=== PATIENT | female | born 1955 | race Caucasian/White ===

== ENCOUNTER 2017-10-22 01:37 | Inpatient (IN) | payer OTHER ==
--- NOTE | 2017-10-18 16:21 | Cons- Neurosurgical ---
General Information and HPI Consulting Request Date of Consult: 10/18/17 Requested By: Arturo RUIAS,Alfa Gaviria Reason for Consult: Neck and arm pain Source of Information: patient Exam Limitations: no limitations History of Present Illness: 63-year-old right-handed lady who was injured at work on 03/27/2015 and she tripped and fell over 1 Registered to another heart. She'll fractured clavicle without being treated she's continued to have neck and arm pain. The pain radiates from the neck and the fingers of her right hand that have been associated with a recent onset weakness she has been in physical therapy with no long-standing relief she has had epidural injections and facet injections with minimal relief Allergies/Medications Allergies: Coded Allergies: No Known Allergies (10/15/17) Home Med List: Aspirin (Children's Aspirin) 81 MG TAB.CHEW 1 TAB PO DAILY HEART HEALTH ( Reported) Atorvastatin Calcium (Lipitor) 10 MG TABLET 1 TAB PO DAILY CHOLESTEROL ( Reported) Carvedilol 6.25 MG TABLET 1 TAB PO BID HEART (Reported) Duloxetine HCl (Cymbalta) 60 MG CAPSULE.DR 1 CAP PO DAILY DEPRESSION ( Reported) Famotidine 20 MG TABLET 1 TAB PO BID AVOID STOMACH IRRITATION (Reported) Gabapentin 600 MG TABLET 1 TAB PO QHS PAIN (Reported) Gabapentin (Neurontin) 300 MG CAPSULE 1 CAP PO QHS PAIN (Reported) Ibuprofen (Motrin) 800 MG TAB 1 TAB PO Q8H PRN PAIN OXYCODONE HCL/ACETAMINOPHEN (Percocet 5-325 MG Tablet) 325 MG/5 MG TAB 1 TAB PO Q4-6 PRN PRN PAIN Ranitidine (Ranitidine HCl) 150 MG TABLET 1 TAB PO BID REFLUX (Reported) Tramadol HCl (Tramadol HCl ER) 100 MG TAB.ER.24H 1 TAB PO 12 N00N PAIN ( Reported) Current Medications: Cymbalta tramadol methotrexate Celebrex ibuprofen famotidine and ranitidine Past History Medical History Blood Transfusion Hx: No Neurological: NONE EENT: NONE Cardiovascular: hypertension Respiratory: NONE Gastrointestinal: NONE Renal: NONE Musculoskeletal: PLANTAR FASCITIS pelvic fracture Psychiatric: NONE Endocrine: NONE Blood Disorders: NONE Cancer(s): NONE 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 Home Who Do You Live With? spouse Services at Home: None Primary Language: Georgian Smoking Status: Former Smoker ETOH Use: denies use Illicit Drug Use: denies illicit drug use Living Will? unknown Power of Dialer/HCP? unknown Name of POA/HCP: Other Social History: None Functional Ability ADLs Independent: dressing. Ambulation: independent IADLs Independent: shopping. 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 no Review of Systems Review of Systems: Symptoms are worse with activities and using bending sitting standing and walking are improved with rest and medication. She has posterior cortex. She has no bowel or bladder dysfunction. Review of Systems Constitutional: Denies: no symptoms. EENTM: Reports: see HPI. Cardiovascular: Denies: no symptoms. Respiratory: Reports: see HPI. GI: Denies: no symptoms. Genitourinary: Denies: no symptoms. Musculoskeletal: Reports: see HPI. Skin: Denies: no symptoms. Neurological/Psychological: Denies: no symptoms. Hematologic/Endocrine: Denies: no symptoms. Immunologic/Allergic: Denies: no symptoms. All Other Systems: Reviewed and Negative Exam & Diagnostic Data Vital Signs and I&O see primary care note Physical Exam: She states that 3. She was torn and 30 pounds. Her cranial nerves are intact. She has marked limitation of range of motion of her neck and has bothered bilateral positive Spurling signs. She has an axial loading sign to the right. She is areflexic and biceps brachioradialis and triceps on the right. She has no increased finger flexors. She has decreased sensation in C6 and C7 distribution as well on the right. Left thumb appears to be within normal limits was 1-2+ reflexes. She is slightly hyperreflexic at knees being 3+ to 4+ Earl's Physical Exam General Appearance: well developed/nourished Head: atraumatic Eyes: Bilateral: normal appearance. Ears, Nose, Throat: normal ENT inspection Neck: limited range of motion Respiratory: normal breath sounds Cardiovascular: regular rate/rhythm Breasts deferred Peripheral Pulses: 1+ radial (R), 1+ radial (L) Gastrointestinal: soft Rectal: deferred Back: normal inspection Extremities: normal inspection Neurologic/Psych: normal gait, normal mood/affect Cranial Nerves: normal hearing Skin: intact Lymphatic: no anterior cervical kimmy Reproductive: deferred Pelvic: deferred Other Physical Findings: No other physical findings Last 24 Hours of Labs: Pending Imaging Results: CAT scan shows an anterior subluxation of C3 over C4 and C4 C6 7 disc space narrowing significant reversal of lordosis. C3 4 there is a significant right foraminal encroachment of the facet arthropathy at C4 5 there is a disc osteophyte complex with facet hypertrophy and facet encroachment bilaterally. There is some flattening of the cortical osteophyte complex at C5 6 and worsening right-sided narrowing at the level CV 6 and C6 Her MRI demonstrates central disease at C3 4 and as such severe right-sided foraminal stenosis at C3 4, joint hypertrophy bilaterally at C4 5 with severe right foraminal stenosis. C5 6 demonstrates more central canal compromise and C6 7 shows no stenosis foraminal entrapment Other Results: No EMG Assessment/Plan Assessment/Plan Patient was sent to inserting the most dangerous situation for her was a simple lateral listhesis at C3 4 and a compromise at C4 5. She was indicated for surgery at least 2 levels. She manifested consider doing further surgery either posteriorly or anteriorly. Other Findings/Comments: None Copies To: Alfred Reyes DO, MD,[facility]. Consult Acknowledgment - Thank you for your consult request.
[~2017-10-22] VITALS: Ht 167.6 cm; Wt 103.9 kg
[~2017-10-22 01:37] MED LIST: CARVEDILOL6.25 M1 PO; CHILDREN'S ASPI81 M1 PO; CYMBALTA60 M1 PO; FAMOTIDINE20 M1 PO; GABAPENTIN600 M1 PO; LIPITOR10 M1 PO; MOTRIN800 MG PO; NEURONTIN300 M1 PO; PERCOCET 325 MG1 TA2 PO; RANITIDINE HCL150 MG PO; TRAMADOL HCL E100 MG PO
--- NOTE | 2017-10-22 12:34 | Operative Report ---
Operative/Inv Procedure Report Surgery Date: 10/22/17 Name of Procedure: #1 anterior cervical microscopic discectomy C3-4 C4-5 #2 preparation of space for fusion C3-4 C4-5 #3 repair of dural tear Pre-Operative Diagnosis: #1 spondylolisthesis C3-4 #2 spinal stenosis C4-5 Post-Operative Diagnosis: Same Estimated Blood Loss: scant Surgeon/Heating Technician: Arturo URIAS,Alfa Gaviria(cosurgeon) Mac Edwards MD Anesthesia: general endotracheal tube Monitors: Neurophysiology IV Fluids: D5NS Implants: Medtronic plate and cages Urine Output: Overall 100 mL Drains: None Specimens: None Microbiology: None Tourniquet: None Complications: C4-5 dural tear in the foramen on the left side Condition: Stable Operative Indication: 62-year-old right-handed lady who was injured at work falling the course of her employment at [employer] and has had neck and right arm pain since. Extensive physical therapy and multiple injections failed to resolve her problem. She was identified as having spondylolisthesis at C3 4 and spinal stenosis at C4 5 in addition to other spondylotic changes at the 2 levels beneath. Indication for surgery alternative risks and possible convocation were discussed at length patient elected to have surgery performed O guarantees given all questions answered Operative/Procedure Note Note: The patient was intubated supine received 2 g of intravenous antibiotics was then kept supine with her neck hyperextended on a shoulder roll in a halter traction device and 15 pounds of weight placed on her neck Her head was elevated to about 50 and prepped and draped usual sterile manner and incision was created in the skin folds after being infiltrated with Xylocaine and epinephrine Sharp dissection was carried down to the platysma which was then dissected in the direction of its fibers Sharp dissection was brought down to the anterior cervical fascia which was stripped superiorly and inferiorly to Harper were placed and an x-ray of with C-arm confirmed that we were at C3 4 C4 5 and this was confirmed by the radiologist coming into the room indeed Starting at C3 4 on the anterior osteophyte was removed the space entered with 11 blade knife under the magnification and illumination provided for by the Leica microscope using a 3 mm Kerrison the anterior osteophyte was removed disc material was removed with straight and up-biting pituitaries and micro-graspers a long vertebral growth media mixer mushroom was placed in the interbody space and we are able to focus on the posterior longitudinal ligament which was then opened with a nerve hook and widened with 2 mm Kerrisons and 1 mm Kerrisons This was carried out widely until both foramina were free The same procedure was started at C4 5 likewise removing the anterior osteophytes at removing disc material and and proceeding to open the posterior longitudinal ligament. Once this was opened and no disc fragments were verified attention was therefore was attempted to verify the foramen a bilaterally this was cleared easily on the patient's right hand side on a patient's left-hand side a dural tear was noted This required treatment by ultimately placing Tisseel right over the defects followed by a layer of Gelfoam followed by a second layer of Tisseel followed by placement of an extra piece of Gelfoam which she then was removed upon fusion The space was prepared for fusion with drill and rasps and curettes and once ready was turned over to the orthopedic service for fusion and this will be dictated separately Sponges and count correct Findings: Patient spondylolisthesis resolved upon extension Discharge Disposition: PACU Additional Comments: Patient may require an extra day of hospitalization to verify on dryness of CSF repair CC: Sade Reyes DO; Arturo URIAS,Alfa Gaviria
--- NOTE | 2017-10-22 13:29 | Admission Core Measures ---
Acute Coronary Syndrome (CM) ACS Core Measures Acute Coronary Syndrome Diagnosis No Congestive Heart Failure (NEW) CHF Core Measures Congestive Heart Failure Diagnosis No Cerebrovascular Accident (NEW) CVA Core Measures CVA/TIA Diagnosis No Venous Thromboembolism VTE Core Geoff (View Protocol) VTE Risk Factors Surgery No Mechanical VTE Prophylaxis d/t N/A MechProphylax Ordered No VTE Pharm Prophylaxis d/t Surgical Contraindication Problem List As ranked by this Provider includes Assessment & Plan 1. Spondylolisthesis of cervical region HOME MEDS Home Med List Aspirin (Children's Aspirin) 81 MG TAB.CHEW 1 TAB PO DAILY HEART HEALTH ( Reported) Atorvastatin Calcium (Lipitor) 10 MG TABLET 1 TAB PO DAILY CHOLESTEROL ( Reported) Carvedilol 6.25 MG TABLET 1 TAB PO BID HEART (Reported) Duloxetine HCl (Cymbalta) 60 MG CAPSULE.DR 1 CAP PO DAILY DEPRESSION ( Reported) Famotidine 20 MG TABLET 1 TAB PO BID AVOID STOMACH IRRITATION (Reported) Gabapentin 600 MG TABLET 1 TAB PO QHS PAIN (Reported) Gabapentin (Neurontin) 300 MG CAPSULE 1 CAP PO QHS PAIN (Reported) Ranitidine (Ranitidine HCl) 150 MG TABLET 1 TAB PO BID REFLUX (Reported) Tramadol HCl (Tramadol HCl ER) 100 MG TAB.ER.24H 1 TAB PO 12 N00N PAIN ( Reported)
[2017-10-22 16:10] VITALS: BP 170/98
[2017-10-22 16:15] VITALS: BP 170/98
--- NOTE | 2017-10-22 16:47 | RADIOLOGY REPORT ---
EXAMINATION: CR CERVICAL SPINE/INTRAOPERATIVE FLUOROSCOPY CLINICAL INDICATION: Laminectomy/fusion C3-C5 in OR. COMPARISON: CT scan of the cervical spine dated 12/19/2016 TECHNIQUE/FINDINGS: Fluoroscopic equipment was dedicated to the operating room for the performance of an intraoperative procedure. Several (4) spot films were acquired and are archived in PACS. The images were windowed and leveled several different ways and sent again. Image detail is extremely limited. When viewed intraoperatively, 2 markers were thought to be present at the C3-C4 and C4-C5 disc space. Please refer to operative notes for procedural detail. FLUOROSCOPY TIME: 0.38 seconds. IMPRESSION: Administrative dictation for intraoperative fluoroscopy and image archiving in PACS. Please refer to operative notes for details.
--- NOTE | 2017-10-22 18:09 | PN- Orthopedic ---
Subjective Subjective: No acute post operative events noted. Pt is resting comfortably. Denies chest pain, shortness of breath and difficulty breathing. Denies nausea and vomitting. Has been oob to void, did have some dizziness. No numbness or tingling to bilateral upper extremities. No difficulty speaking or swallowing. Using dpca with good effect. Objective Vital Signs and I&Os See emr Physical Exam: General: Alert and oriented x3, no acute distress CN in tact Cardiac: RRR, s1s2 Pulm: C T A bilaterally Abd: Soft, non-tender, non-distended Extremities: Moves all extremities, distal sensation grossly intact. Motor 5/5 in bilateral hand computer aide. Skin warm and well perfused. Bialteral calves soft and non-tender. Surgical site: Neck. Dressing dry and intact. Collar in place. Padding over ears. Assessment/Plan Assessment/Plan This is a 62 year old female, POD 0, s/p ACDF C3-5 for spondylolisthesis Continue home meds Keep HOB greater than 30 degrees Soft mechanical diet Ancef for abx ppx x 2 additional doses ALPS for dvt ppx, surgical contraindication at present time for anticoagulant per Dr. Morris DPCA for pain Can get oob Will discuss poc with Dr. Morirs Core Measures Venous Thromboembolism VTE Risk Factors Surgery No Mechanical VTE Prophylaxis d/t N/A MechProphylax Ordered No VTE Pharm Prophylaxis d/t Surgical Contraindication
[2017-10-22 18:15] VITALS: BP 150/80
[2017-10-22 20:15] VITALS: BP 158/90; BP 158/96
[2017-10-22 22:33] VITALS: BP 150/90
[2017-10-23] VITALS (13 sets, daily range): BP systolic 130–150; BP diastolic 74–92
--- NOTE | 2017-10-23 08:24 | PN- Orthopedic ---
Subjective Subjective: No acute overnight events reported. Pateint seen by Dr. Morris this am. 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 Complaining now of headache, no photophobia. Reports improved strength in bilateral upper extremities. Denies chest pain, shortness of breath and difficulty breathing. Denies nasuea and vomitting. Has been oob to chair. Anticiaptes discharge to home today if headache resolves Objective Vital Signs and I&Os Vital Signs Date Time Temp Pulse Resp B/P B/P Pulse O2 O2 Flow FiO2 Mean Ox Delivery Rate 10/23 0615 98.0 78 20 150/92 98 Nasal 3.0L Cannula 10/23 0600 98.0 78 20 150/92 / 0415 97.2 80 20 140/90 98 Nasal 3.0L Cannula 10/23 0400 97.2 80 20 140/90 / 0215 98.0 77 20 140/90 97 Nasal 3.0L Cannula 10/23 0200 20.0 77 98 140/90 / 0015 97.8 82 20 130/74 96 Nasal 3.0L Cannula 10/23 0000 97.8 82 20 130/74 03/ 0000 96 Nasal 3.0L Cannula 10/22 2233 97.9 100 18 150/90 98 Nasal 3.0L Cannula 10/22 2121 105 158/90 10/22 2014 97.7 105 18 158/96 10/22 2014 97.7 105 18 158/90 98 Nasal 3.0L Cannula 10/22 181 97.6 95 18 150/80 / 1815 97.6 95 18 150/80 95 Nasal 3.0L Cannula 10/22 1615 98.3 101 18 170/98 10/22 1615 98.3 101 18 170/98 96 Nasal 3.0L Cannula 10/22 1610 Nasal 3.0L Cannula 10/22 1610 98.3 101 18 170/98 96 Nasal 3.0L Cannula Intake & Output 10/23 1600 / 0800 / 0000 / 1600 / 0800 / 0000 Intake Total 945 300 Output Total 700 650 Balance 245 -350 Intake, IV 825 Intake, Oral 120 300 Number 0 Bowel Movements Output, Urine 700 650 Patient 229 lb Weight Physical Exam: General: Alert and oriented x3, no acute distress Cards: RRR, s1s2 Pulm: CTA bilaterally HEENT: Voice strong, swallow intact, tolerating mechanical soft diet ABD: non-tender, non-distended Extremities: Moves all extremities, distal sensation grossly intact. Bilateral upper extremity strength 5/5 in hand film historian and bicep curls. Skin warm and well perfused. Distal pulses intact. Bilateral calves soft and nontender. Surgical site: Neck, collar in place, dressing dry and intact. Assessment/Plan Assessment/Plan This is a 62 year old female, POD 1 s/p acdf c3-5 with dural repair. PMH signficant for anx/dep, htn, hld, neuropathy -Continue home meds -DC d hydro excavation operator -Add po percocet -Continue HOB greater than 30 -Monitor headache. Pt requesting to go home today. Will monitor headache, will keep in hospital if headache persists. Discussed with Dr. Morris Core Measures Venous Thromboembolism VTE Risk Factors Surgery No Mechanical VTE Prophylaxis d/t N/A MechProphylax Ordered No VTE Pharm Prophylaxis d/t Surgical Contraindication
--- NOTE | 2017-10-23 08:51 | PN- Neurosurgical ---
Surgical Brief Attending Note Brief Attending Note: Postoperative day #1 AVSS No difficulty swallowing no hoarseness. Complete resolution of preoperative complaints. She feels her hands are stronger. Incision is clean flat no collection noted under it. No headaches no nausea no vomiting Patient doing quite well and no objections to her being discharged and will see in the office. She might need to go to [facility] Charge is sore and another ortho supply outfitted for a better sized collar. We will see in the office
[2017-10-23] MEDS ORDERED: PERCOCET 5-3251 EACH PO (20:37)
--- NOTE | 2017-10-23 20:42 | Patient Discharge Instructions ---
Discharge Instructions General Discharge Information You were seen/treated for: Anterior cervical discectomy and fusion C3 to C5 You had these procedures: See above Watch for these problems: Redness from the wound, drainage from the wound, headaches, nausea, vomiting, sensitivity to light, fever or flulike illness, difficulty swallowing Call Surgeon to remove: Stitches (10 days) Do not soak the wound: Yes Daily wet to dry dressings: No No bath, but you may shower: Yes Other wound care: Keep the dressing covered, clean and dry Special Instructions: Continue cervical collar Head of bed elevated greater than 30 at all times, do not lay flat Diet Continue normal diet: Yes Activity Full Activity/No Limits: No Activity Self Limited: Yes Pounds, do NOT lift more than: 10 Additional ACTIVITY Info: Usual activities of daily living are permitted, no excessive physical activity Acute Coronary Syndrome Inclusion Criteria At DC or during hospital stay patient has or had the following: ACS DIAGNOSIS No Discharge Core Measures Meds if any: Prescribed or Continued at Discharge Meds if any: NOT Prescribed or Continued at Discharge Congestive Heart Failure Inclusion Criteria At DC or during hospital stay patient has or had the following: CHF DIAGNOSIS No Discharge Core Measures Meds if any: Prescribed or Continued at Discharge Meds if any: NOT Prescribed or Continued at Discharge Cerebrovascular accident Inclusion Criteria At DC or during hospital stay patient has or had the following: CVA/TIA Diagnosis No Discharge Core Measures Meds if any: Prescribed or Continued at Discharge Meds if any: NOT Prescribed or Continued at Discharge Venous thromboembolism Inclusion Criteria VTE Diagnosis No VTE Type NONE VTE Confirmed by (Test) NONE Discharge Core Measures - Per Current guidelines, there needs to be overlap - treatment for the first 5 days of Warfarin therapy. - If discharged on Warfarin prior to 5 days of - overlap therapy, the patient will need to be - assessed for post discharge needs including - *Post discharge parental anticoagulation - *Warfarin and/or parental anticoagulation education - *Follow up date to check INR post discharge At least 5 days overlap therapy as Inpatient No Meds if any: Prescribed or Continued at Discharge Note: Overlap Therapy is Warfarin and Anticoagulant Meds if any: NOT Prescribed or Continued at Discharge
--- NOTE | 2017-10-23 20:45 | Surg Short-stay <48hrs Dis Sum ---
Visit Information Visit Dates Admission Date: 10/22/17 Discharge Date: 10/23/17 Surgical Short Stay DC Summary Admission Diagnosis: s/p acdf c3-5 with dural repair. Final Diagnosis: same Procedure(s): see above Summary/Significant Findings: Patient underwent the above mentioned procedure, was evidently she did well, she had her head of bed elevated about 30 she had a headache postoperatively. She felt comfortable being discharged home on postop day #1. Pain was controlled, no fever, no complications. No neurologic weakness or deficits. She'll follow up with orthopedist as outpatient Condition at Discharge: Good Discharge Disposition: home or self care Discharge instructions provided to patient/family: Yes Post discharge follow-up plan: Follow-up with Alfa Morris MD in 10 days in the office Continue cervical brace, head of bed elevation over 30, pain medication as needed
--- NOTE | 2017-10-23 21:45 | Operative Report ---
See Addendum Operative/Inv Procedure Report Surgery Date: 10/22/17 Name of Procedure: 1) C2-C3 Exploration Of Segmental Autofusion (Arturo/Grace) 2) C3-C4 Combination Closed And Open Treatment Of Dynamically Hypermobile And Unstable Cervical Spondylolisthesis Associated With Neural Element Deviation , Compression And Risk Of Compromise Requiring Reduction Using Intraoperative Traction And Direct Internal Manipulation Prior To Instrumented Stabilization Followed By Postoperative Rigid Cervical Orthosis Bracing (Arturo/Grace) 3) C3-C4 Anterior Cervical Discectomy And Instrumented Fusion (Arturo- Grace Co-Surgeons) 4) C4-C5 Anterior Cervical Discectomy And Instrumented Fusion (Arturo- Grace Co-Surgeons) 5) C3-C4 Anterior Cervical Interbody PEEK Implant Instrumentation (Arturo/ Grace) 6) C4-C5 Anterior Cervical Interbody PEEK Implant Instrumentation (Arturo/ Grace) 7) C3-C5 Anterior Cervical Transvertebral Plate-Screw Implant Construct Instrumentation (Arturo/Grace) 8) C3-C5 Correction Of Kyphotic Deformity (Arturo/Grace) 9) C3-C5 Anterior Cervical Interbody Moselized Local Autograft [place], Preparation And Implantation (Arturo) 10) C3-C5 Use Of Operating Microscope (Grace) Pre-Operative Diagnosis: Primary Surgically Treated Diagnoses: 1) C3-C4 And C4-C5 Upper And Mid-Cervical Grade II Degenerative Partially Dynamic Foraminal Neurocompressive Cervical Spondylolisthesis 2) C3-C4 And C4-C5 Upper And Mid-Cervical Spinal Segmental Instability 3) C3-C5 Upper And Mid-Cervical Spinal Moderate To Severe Partially Flexible Short-Segment Kyphotic Deformity 4) C3-C4 And C4-C5 Upper And Mid-Cervical Spondylosis With Concurrent Bilateral Upper Shoulder And Distal Upper Extremity Radiculopathy* 5) C3-C4 Degeneration Of Upper Cervical Intervertebral Disc 6) C4-C5 Degeneration Of Mid-Cervical Intervertebral Disc 7) C3-C4 Upper Cervical Intervertebral Disc Disorder With Associated Bilateral Upper Shoulder And Concurrent Distal Upper Extremity Radiculopathy* 8) C4-C5 Mid-Cervical Intervertebral Disc Disorder With Associated Bilateral Upper Shoulder And Concurrent Distal Upper Extremity Radiculopathy* 9) Severe, Activity And Functionally Limiting, Intermittently Incapacitating Neck (Cervical Spine) Pain (Cervicalgia) 10) C3-C4 And C4-C5 Upper And Mid-Cervical Bilateral Osseous Foraminal Cervical Spinal Stenosis 11) Upper Cervical Bilateral Radiculopathy Of Undefined Relationship To And Likely Partially Independent Of Operative Level Intervertebral Disk Disorder Or Spondylosis Manifest As Proximal Upper Extremity (Upper Shoulder) Radiating Pain And Separate Lower Cervical Distribution Radiculopathy Manifest As Bilateral Hand Weakness, Numbness And Discoordination Which Is Likely Completely Independent Of Operative Level Pathology (* = Refer Here And Elsewhere In This Diagnosis List Or Document For Detailed Radiculopathy Symptom And Finding Description) Primary Surgically Evaluated Diagnoses: 12) C2-C3 Upper Cervical Motion Segment Auto-Arthrodesis Secondary Surgically Treated Diagnoses: 13) C3-C4 And C4-C5 Bilateral Upper Cervical Disk Space Intermediate-Sized Anterior And Posterior Broad-Based (Central And Bilateral Paracentral) Endplate And Bilateral Uncovertebral Intraforaminal Compressive Osteophytic Spondylosis 14) C3-C4 And C4-C5 Bilateral Upper And Mid-Cervical Level Mild To Severe Degenerative Osteoarthritic Facet Arthropathy 15) C3-C4 And C4-C5 Bilateral Upper And Mid-Cervical Level Mild To Severe Hypertrophic Facet Arthropathy Secondary Potentially Surgically Treated Diagnoses: 16) Bilateral Upper Extremity Distal (Anglesmith And Finger Abduction) Motor Neurological Deficit With Reported Episodes Of Giving Way And Dropping Of Even Light Objects Due To Weakness 17) Bilateral Upper Extremity Moderate Distal Coordination Neurological Deficit With Reported Episodes Of Deterioration In Manipulation Of Small Objects 18) Bilateral Distal Upper Extremity Hypoesthetic Disturbance Of Skin Sensation Secondary Surgically Relevant Diagnoses: 19) C2-C7 Severe, Diffuse And Extensive Cervical And Cervicothoracic Regional Spinal Degenerative Arthritis (Spondyloarthropathy) Perioperatively Clinically Relevant Diagnoses: 20+) Numerous Additional Diagnoses Related To The Degenerative And Spondylotic Disease At C5-C6 And C6-C7 Post-Operative Diagnosis: Same as preoperative diagnosis list with the addition of: Intraoperative Surgically Treated Diagnoses: 1) C3-C4 And C4-C5 Expected Upper And Mid-Cervical Spinal Segmental Intraoperative (Post-Discectomy, Pre-Instrumentation) And Potential Postoperative Instability Requiring Operative Instrumented Stabilization 2) C3-C4 And C4-C5 Expected Potential Early Postoperative (Post-Discectomy, Post-Instrumentation And Pre-Arthrodesis) Microinstability Requiring Acute Postoperative Activity Limitation And Rigid Cervical Orthosis Use 3) C3-C4 Level Left Ventral Nerve Root Sleeve Incidental Durotomy Requiring Sealant Repair With No Persistent Spinal Fluid Leak Identified After Successful Repair. Patient May Will Require Specialized Postoperative Positioning ( Elevated Head Position) And Close Inpatient Nursing Observation During The Acute Postoperative Period Which May Need To Extend Beyond The First Postoperative Day Depending On Serial Inpatient Postoperative Assessments Intraoperative And Postoperative Diagnoses Relevant To Postoperative Care: 1) Anticipated Acute Postoperative Neck And Bilateral Upper Shoulder Region Pain Requiring Potentially Sedating Postoperative Narcotic Analgesic Pain Medication And Inpatient Nursing Observation And Supervised Mobilization Following Complex And Extensive But Uncomplicated Multilevel Anterior Cervical Discectomy And Instrumented Fusion With Correction Of Deformity 2) Anticipated Acute Postoperative Cervical Spine And Upper Shoulder Region Muscular Spasm Requiring Potentially Sedating Postoperative Muscle Relaxant Medication Following Procedure Described Above 3) C3-C4 And C4-C5 Early Acute Anterior Cervical Spinal Discectomy And Decompression Postprocedural Status 4) C3-C4 And C4-C5 Early Acute Anterior Cervical Spinal Arthrodesis Postprocedural Status 5) C3-C4 And C4-C5 Presence of Anterior Cervical Spinal Interbody PEEK Cage And Anterior C3-C5 Transvertebral Plate-Screw Osseous Stabilization Instrumentation Construct Implants 6) Potential For Acceleration Of Bone Healing Relative To The Standard Healing Likelihood And Timecourse For The Extent (Number Of Motion Segments) Of the Multicolumn, Multilevel Arthrodesis Being Performed, The Complexity ( Baseline Spondylolisthesis And Instability) Of The Underlying Condition Being Treated And The Multilevel Use Of Non-Osseous Implants In This Patient Whose Stated Goal And Reasonable Postoperative Potential Is To Return As Close As Possible To Her Pre-Injury Level Of Function As Early As Possible Following This Procedure All Of Which Are Indications For The Use Of An External Pulsed Electromagnetic Field Stimulation Device To Potentially Optimize And Accelerate Osseous Fusion Formation Estimated Blood Loss: less than 50ml Surgeon/Riveter: FRANKLIN PATEL MD - Primary Admitting Orthopaedic Spine Co-Surgeon MAC EDWARDS MD - Primary Consulting Neurological Spine Co-Surgeon Surgical Providers: Regarding Orthopaedic Spine Portion Of Procedure Dictated Here: Franklin Patel M.D. - Orthopaedic Spine Surgeon (Co-Surgeon/Primary Admitting Surgeon) Mac Edwards M.D. - Neurosurgeon (Co-Surgeon/Riveter Surgeon) See Neurosurgical Operative Report Regarding Surgical Provider Designation For Neurosurgical Spine Portion Of Procedure Anesthesia: general endotracheal tube Monitors: Standard general anesthesia and other perioperative monitoring was performed per anesthesia protocols. Standard Intraoperative EMG, SSEPand recurrent laryngeal nerve electrophysiological monitoring (NeuroAlert) MEP monitoring was not performed in this case as a precautionary measure because of the patient's history (albeit remote and nonspecific) of possible seizures. Refer to anesthesia and intraoperative electrophysiological monitoring records for details. IV Fluids: Standard anesthesia fluid management was performed without requirement for additional or emergent fluid resuscitation. Refer to anesthesia records for details. Implants: Implants: Implants Placed: Anterior Interbody Implants: Medtronic Cornerstone Anatomic PEEK PTC Interbody Cage Implants: 1 x 8 mm Height x 11 mm Depth x 14 mm Width At C3-C4 Anterior Transvertebral Cervical Implants: Medtronic Anterior Cervical [place] Vision Elite (AVE) Plate- Screw Construct: 1 x 37 mm 3-Tzquczciwtxaay-Fsnhxs-Level (3 Vertebral Level), 6-Hole AVE Plate Implanted From C3 To C5 (With Fixation At C3, C4 And C5 ) 3 x 13 mm Length x 4.0 mm Diameter Fixed Angle Self- Tapping (FAST) AVE Screws Implanted Bilaterally AT C5 And On The Right At C4 3 x 13 mm Length x 4.0 mm Diameter Variable Angle Self- Tapping (VAST) AVE Screws Implanted On The Left At C4 And Bilaterally AT C3 Graft: Graft Placed: Morselized Locally Harvested Autograft: Harvested From C3-C4 And C4-C5: Resected Anterior And Uncovertebral Osteophytes Decorticated And Drill Contoured Osseous Endplates Densely Packed In The Central Chamber Of The Interbody Cages: C3-C4 C4-C5 Urine Output: Refer to anesthesia records for details. Drains: None Specimens: Removed cervical disk fragments sent to pathology for analysis per hospital protocol Complications: None Operative/Procedure Note Note: Preoperative Holding Area Assessment/Preparation: The patient was evaluated in the preoperative holding area prior to surgery and no clinical changes or contraindications to surgical intervention were documented compared to the preoperative office and clearance evaluations. Her mild but reproducible bilateral hand motor, sensory and coordination deficits are unchanged from clearance examinations although the patient reports that they are slowly but steadily subjectively worsening. As in the office, the patient was otherwise grossly neurovascularly intact in both upper extremities to standard testing. Active, patient controlled Lhermitte's and Spurling's maneuvers were negative and there were no abnormal or hyperactive reflexes to suggest acute, resting or positional neural element compression that might be associated with increased neurological intraoperative risk based on preoperative assessment. She did however have moderately increased axial and proximal radiating upper shoulder pain at the extremes of flexion and extension. These exacerbated symptoms were only at maximal excursion well outside of the standard neutral range for intraoperative positioning. With the patient's head and neck in the neutral position intended for intraoperative positioning, all exacerbated symptoms resolved. In this neutral cervical alignment, gentle traction was applied and the patient reported increased comfort without any exacerbation related to traction. Therefore, standard ACDF positioning and traction were felt to be safe and optimal for the procedure. The surgical plan and site were confirmed with the patient and preoperative paperwork was finalized. In the preoperative evaluation area, she confirmed her oral intake status as NPO since midnight prior to surgery. The region of the intended surgical site was cleansed, prepped and marked per protocol. The surgeons, anesthesia care team members, and operating room staff confirmed the patient identity, surgical procedure, and operative site as well as other clinical details with the patient in an initial documented preoperative confirmation (awake time out) prior to the administration of significant sedation or anesthesia. Surgical Procedure: Dr. Patel and Dr. Edwards were both present for and participated equally as co-surgeons in all clinically significant phases of the surgical procedure documented below as well as for all critical intraoperative and perioperative decisions and interventions. The set-up, positioning, exploration of autofused level, arthrodesis, instrumentation and closure portions of the procedure are described in greatest detail in this operative report. Refer to Dr. Mora Neurosurgical operative report for additional details particularly regarding the electrophysiological monitoring, application of cervical traction, exposure, discectomies, osteophytectomies, neural element decompression, sealant closure of durotomy and microsurgical (use of the operating microscope) portions of the procedure. The patient's body habitus (BMI = 30) with short, deep and muscular neck increased the difficulty and risk of the procedure but did not specifically require additional procedural services in this case. Set-Up/Positioning/Exposure - The patient was brought to the operating room in stable condition and underwent uncomplicated induction of general anesthesia, intubation, and placement of all appropriate monitors, lines and catheters without difficulty. Administration of 2 grams of IV Ancef based on patient body mass was given for surgical prophylaxis and was completed at least 30 and less than 60 minutes prior to making an incision. Corticosteroid (Decadron 4 mg IV) was requested by anesthesia for nausea prophylaxis, approved by the surgeon (particularly considering its theoretical neuroprotective effect in this patient with bilateral, multi-root distribution radiculopathy), and administered shortly after intubation. The patient was positioned supine on the operating table in standard fashion for an anterior cervical discectomy and instrumented fusion taking care to protect and stabilize the spine during transfer, avoid positions of nerve stretch, pad all pressure points, and support the head and neck in a slightly extended position using a rolled sheet under the scapulae and a gel donut head rest under the occiput. Care was taken to insure that the intraoperative position was maintained throughout the procedure within the range which the patient had confirmed as being comfortable and without exacerbated symptoms preoperatively. Harness cervical traction apparatus was placed in standard fashion with 15 pounds of stabilizing weight applied (even for this upper cervical procedure given the patient's short, muscular neck) taking care to avoid any force transmission to the endotracheal tube. The operating table was gently flexed upward at the hips and downward at the knees in a partial "beachchair" position to optimize stability of the patient on the table as well as the angle of access to the cervical disk spaces particularly under microscope visualization. Electrophysiological monitoring electrodes were placed per standard monitoring protocol. Wrist cuffs were placed with sufficient circumferential approximation so that bilateral upper extremity traction could be applied during the case if necessary for radiologic visualization, but loose enough that there was no pressure to the wrists when traction was not being applied. Care was taken to insure that all IV sites and monitoring leads were protected in the unlikely event that wrist traction was required during the procedure. The arms were well padded and tucked at the patient's sides, again taking care to protect all IV sites and monitoring leads. Baseline preoperative electrophysiological monitoring readings were obtained and no gross abnormalities were noted. The surgeons, anesthesia care team, and operating room staff again documented the patient identity, surgical procedure, and operative site as well as other clinical details in a final documented confirmation (final time out) prior to beginning the procedure. A cross-table lateral fluoroscopic image was obtained with a radiopaque skin marker in place to determine the optimal level for incision, to document optimized intraoperative cervical alignment, as well as to confirm acceptable radiologic visualization and numerical identification of the intended operative levels with sufficient detail down to the lower cervical and cervicothoracic levels if necessary throughout the procedure. No upper extremity traction was required to obtain optimal visualization during this localization phase of the procedure. The intended incision was planned within the primary skin crease closest to the radiopaque marker which was confirmed to be directly over the planned surgical levels. This anterior cervical incision was delineated with a surgical ink marker prior to prep and drape. The approach, exposure, hemostasis, retractor placement, fluoroscopic identification of the intended operative levels, use of the operating microscope , discectomy, posterior disc space endplate and uncovertebral osteophytectomy, foraminotomy, central and foraminal neural element decompression and sealant application to region of durotomy are dictated in greatest detail by Dr. Edwards in his Neurosurgery operative report and are only briefly reviewed here. Refer to that Neurosurgical operative document for additional details. In brief summary of initial primary neurosurgical portions of the procedure, after sterile prep and drape performed using standard technique with Duraprep, the previously marked right paramedian anterior cervical incision was infiltrated with local anesthetic, and made in a transverse curvilinear fashion within a major anterior neck skin crease overlying the intended operative levels using a #10 scalpel blade. The incision was extended from just lateral of midline to just medial of the medial palpated edge of the sternocleidomastoid muscle at that level. Hemostasis was achieved using Bovie and Bipolar electrocautery beginning with the incision and continuing throughout the procedure with settings appropriate to each progressive level. The dissection was carried through the subcutaneous layer in line with the incision, both the upper and lower skin flaps were mobilized so as to minimize traction injury, and the platysma was then bluntly dissected and divided longitudinally in line with its fibers to expose the underlying strap muscles while allowing for later primary [id number] platysma muscular repair. Soft tissue dissection continued down to the prevertebral space in the plane between the esophagus and trachea medially and the palpated pulse of the vertebral artery laterally taking care to gently manually retract and protect these structures throughout the dissection using hand-held Cloward retractors. With the soft tissue dissection complete down to the prevertebral space, the anterior longitudinal ligament was identified at the disk space level and the moderate-sized anterior exostoses seen on preoperative lateral radiographs were dissected at both presumptive operative levels sufficiently to allow placement of radiographic markers. Two spinal needles were bent in a closely spaced double right-angle configuration to prevent excessive penetration, gently placed into the two disks and confirmed to be at the intended operative levels (C3-C4 and C4-C5) on cross-table lateral fluoroscopic image. No additional upper extremity or cervical traction was required for optimal fluoroscopic visualization of the critical operative cervical region throughout the procedure. Visualization of the lower cervical levels (below the operative region) was more difficult in this patient due to her short cervical region and dense upper trunk. These lower regions were adequately visualized by using specialized fluoroscopic techniques when indicated to rule out subluxation. Once the appropriate levels were fluoroscopically confirmed, dissection was optimized to fully expose both intended operative disc spaces as well as the adjacent medial margins of the longus colli muscles which were elevated using Bipolar and Bovie electrocautery to optimize stable placement of the transverse serrated-edge (toothed) Trim-line retractor blades and self-retaining retractor arm. Use of this submuscular dissection technique insured full horizontal exposure while minimizing pressure on the more superficial medial and lateral structures so as to minimize risk of potential adverse effects associated with retraction. The longitudinal smooth-edge Trim-line retractor blades and arm were then placed using standard technique and configuration so as to optimize exposure while taking care to protect surrounding structures. The Leica operating microscope was sterilely draped and positioned over the operative site so as to optimize illumination and visualization for the microsurgical decompressive portion of the procedure. Discectomy/Osteophytectomy/Neural Decompression - After confirming optimized exposure and visualization, the spreoperative spondylolisthetic alignment of the C3-C4 level was first evaluated and viually confirmed to be nearly fully reduced by the positioning and cervical traction as had been suggested on initial intraoperative fluoroscopy. A rectangular anterior annulectomy was performed first at C3-C4 using a #11 scalpel blade. The disc space was gently distracted using a long-armed cervical intervertebral green tire inspector and a majority of the discectomy was performed with straight and curved curettes alternating with straight and angled pituitary rongeurs down to the level of the uncovertebral joints. The disk material contained within the disk space and removed during initial discectomy was moderately degenerative at this level. At the posterior margin of the disc space, even more severely degenerative and disrupted disk was found along with a disassociated broad-based fragment extending within a disk-osteophyte complex into the central, lateral recess and foraminal zones beyond the spondylotic projection thus additionally contributing to the bilateral ventral spinal canal and foraminal encroachment with neural compression. This herniated degenerative material was noted to elevate and cause buckling of the partially incompetent degenerative posterior longitudinal ligament particularly in the lateral regions posterior to the uncovertebral joint complexes associated with neural element compression in those regions. This intraoperative finding likely underestimated the actual compression when the patient was upright because the spondylolisthesis probably significantly narrowed the nerve root exit zone with the disk herniation projecting posteriorly even more prominently than could be appreciated intraoperatively with traction applied and the listhesis reduced. The primary compressive disk fragment and several smaller peripheral fragments were gently removed with a ball tip nerve hook and micro-pituitary rongeur. All resected disc material was sent to pathology for analysis per hospital protocol. Using curved curettes and Kerrison rongeurs, the posterior longitudinal ligament and all impinging osteophytes were resected. Bilateral foraminotomies were then performed using Kerrison rongeurs to fully decompress all exiting neural structures at the C3-C4 level. Upon completion of the decompression, a ball-tipped [id number] was gently passed out each foramen ventral to the neural elements to document clear and unimpeded passage of the exiting root without residual compression. Both exit zones as well as the central canal were found to be patent following the decompressive portion of the procedure. During the left foraminotomy at C3-C4, an incidental durotomy and small volume cerebrospinal fluid leak was noted presumably from an area of dural expansion that is frequently present in the proximal nerve root sleeve and can be thinned by longstanding disk and/or osteophyte compression making it particularly susceptible to manipulation. Initial control of the leak was achieved with Thrombin-soaked Gelfoam placed in the disk space and gently compressed against the region of the durotomy. No significant or sustained irritability, hyperactive neural firing, muscle contraction or electrophysiological monitoring changes were noted on initial posterior disk fragment and osteophyte removal or during foraminotomy. Attention was then turned to the C4-C5 level which was addressed using identical technique to that described above including exposure, annulectomy, disc and herniated fragment excision, osteophytectomy and bilateral foraminotomies. The C4-C5 level had less listhesis and instability than at C3- C4 but more degenerative disk space narrowing, spondylosis and formaminal stensosis. As at the C3-C4 level, a similar degree of central, bilateral paracentral and foraminal degenerative subligamentous disk fragments were identified causing tenting of the posterior longitudinal ligament and associated indirect compression within the canal and bilateral foramina. Significant spondylosis was also noted particularly in the lateral uncovertebral regions causing similar compression to that seen previously at C3-C4 and consistent with preoperative radiologic studies. The posterior encroaching disc material was removed, followed by resection of uncovertebral osteophytes. Bilateral foraminotomies were performed using standard technique. No cerebrospinal fluid efflux was noted at this level. No neural irritability or muscular hyperactivity was noted during decompression at this level. Full decompression was again documented by gentle palpation in all zones before proceeding with the fusion portion of the procedure. No adverse electrophysiological changes were seen at any point during the decompression of either operative level or at any other time during the case. The microscope was kept in place for the interspace preparation and most of the interbody implantation portion of the procedure. Arthrodesis/Instrumentation - The fusion portion of the procedure including instrumentation and grafting is dictated in greatest detail in this operative report. Prior to arthrodesis at the C3-C4 and C4-C5 levels, an exploration of fusion was performed at the C2-C3 level using a Brimley 4 and curved curette. Autoarthrodesis was confirmed. This additional information may be important intraoperatively related to plate and screw placement and will certainly be critical in the future in optimizing postoperative assessments and recommendations. Arthrodesis was first performed at the C4-C5 level using standard technique. It should be noted that without the distinct and successful procedural services of closed spondylolisthesis reduction and open deformity correction described elsewhere on this report, optimal rigid internal fixation of this dynamically unstable upper and mid- cervical segment would not have been impossible and the patient would likely have required an additional posterior fixation procedure. In addition, the return of alignment in this segemnt to a lordotic posture normalizes load distribution at the severely degenerative C5-C7 segment below which may minimize residual symptoms from this region and could potentially defer or preclude the need for the staged ACDF already planned for these levels. Even if the patient still requires this additional surgery, the deformity correction from abnormal kyphosis to near-normal lordosis will improve prognosis for that additional surgery and minimize the potential need for yet other procedures including the need for posterior stabilization or adjacent segment extension of fusion. A Leksell rongeur was used to resect the anterior osteophytes at the margins of the disc space until the anterior surface across the disc space was flush and optimized for placement of an anterior transvertebral plate. All resected anterior osteophyte bone was cleaned, morselized, and saved along with the bone resected from decompression for potential later reimplantation as nonstructural locally harvested autograft. The [employer] Stan drill with a 5 mm cutting jim was used to remove anterior osteophytes and cartilaginous endplate as well as to partially decorticate the osseous endplates in a tapered fashion from slightly more narrow anteriorly to slightly wider posteriorly leaving both anterior and posterior, superior and inferior vertebral wall projections of 1-2 mm extending into the interspace so as to prevent implant migration. This contouring resulted in slightly more anterior than posterior distraction and disc space height jehovah's witness with partial jehovah's witness of lordosis when the anatomically contoured lordotic implant was later impacted into the tapered interspace. This also insured optimal interference fit of the intervertebral implant and lateral ligamentous tension of the interspace for optimal fusion. In this case, however , endplate contouring and standard technique of interbody implant placement was insufficient to optimize jehovah's witness of sagittal plane alignment and full reduction of spondylolisthesis which required distinct open correction techniques to maintain reduction and optimal alignment during interbody and plate fixation. Identical technique was used to prepare the disk space and endplates at the C3-C4 level. As at the previous level described above the endplates were contoured in a tapered fashion to optimize final lordotic alignment and small vertebral wall projections were fashioned at the margins of the endplates so as to block implant migration. Care was taken to preserve the small Gelfoam "plug" in the left lateral region which had successfully controlled any cerebrospinal fluid leak throughout the decompression and disk space preparation tot his point. Hemostasis was confirmed and both the interspaces and surgical site were thoroughly irrigated prior to placement of the implants and central morselized autograft. All stabilizing and traction weights were removed from the halter harness. With no Halter traction or interspace distraction applied to the operative level, the C4-C5 disk space was templated first with optimal fit and soft tissue tension documented using a standard trial of 8 mm height, 11 mm depth and 14 mm width. Just prior to interbody implant placement, the central portion of each endplate was breached to bleeding cancellous bone with the drill and curved curette at the planned final position of interface with the autograft -filled central chamber of the implant so as to promote optimal ingrowth. The peripheral zones of both osseous endplates surrounding this central breach were preserved at the perimeter for optimal support of the implant so as to minimize the risk of subsidence. The final 8 mm x 11 mm x 14 mm [employer] Anatomic PEEK PTC (Pure\\ Titanium Coated) implant central chamber was densely packed with morselized autograft such that graft was projecting slightly beyond the height of the implant so as to provide optimal graft-endplate contact after central disk space placement of the graft-filled implant. The implant was then gently impacted into the interspace with proper anatomic endplate orientation until it was recessed behind the anterior vertebral wall superior and inferior ridges which had been fashioned to prevent migration. Once the implant was in optimal position, excellent interference fit was documented with no motion seen when gentle anteriorly directed pressure was applied to the posterior aspect of the graft on each side using a nerve hook. This maneuver also allowed palpation behind the graft to insure that there was sufficient space between the graft and the thecal sac with no impingement. Identical interbody arthrodesis procedure was then performed at C3-C4 using similar trial and final implantation technique with identical implant type and size to that described above for C4-C5. Immediately following endplate preparation and prior to implant placement at this level, the left lateral Gelfoam covering the durotomy site at ths level was gently removed by irrigation. No residual cerebrospinal fluid efflux was noted. Tisseel fibrin sealant had already been prepared on the back table and was placed using standard technique first in the left deep corner of the disk space and then across the entire width of the posterior disk space. Care was taken to avoid extension of the fibrin beyond the posterior 25% of the dpth of the disk space so as to avoid potential coompression of fibrin into the canal by cage implantation. The central chamber of the cage was then filled with autograft and the cage was implanted with final intraoperative fit, height and alignment jehovah's witness, ligamentous tension, mechanical assessment and fluoroscopic position documented to be optimal and identical to those at C4-C5. In order to optimize and permanently stabilize spondylolisthesis reduction and deformity correction, the alignment at C3-C4 had to be manually maintained and intermittently visually and fluoroscopically confirmed during cage implantation. Distraction and cage implantation alone without manual reduction could not have achieved optimal final alignment in this case. No cerebrospinal fluid efflux as noted uring or after cage implantation. Once the interbody instrumentation was completed optimally at both operative levels, all traction was removed and hemostasis achieved using small pieces of Thrombin soaked Gelfoam as well as FloSeal placed adjacent to the interbody implants where necessary. Bone wax was also applied to the anterior vertebral body surfaces for any necessary additional osseous hemostasis. The microscope was then removed and attention was turned to the anterior plate and screw construct placement and stabilization. Final contouring of the anterior vertebral body gaytan was performed using the [employer] Stan drill and cutting jim until an appropriately sized plate could rest flush on all anterior vertebral body surfaces to provide optimal fixation. A 37 mm Medtronic Monteagle Vision Elite (AVE) 6-hole (2 motion segment, 3 vertebral level) anterior cervical stabilization plate was chosen such that the margins of the upper and lower screw holes were positioned just beyond the most superior and inferior endplates of the operative levels respectively with each screw hole entirely over vertebral body cortical wall at each end of the plate so as to optimize screw purchase and plate fixation. This plate size and position resulted in optimal fixation while minimizing any risk of plate extension too close to the lower adjacent unfused disk. The plate was contoured into optimal lordosis prior to implantation using the plate ibarra specifically designed for this system. Ultimately, the endplate and plate contouring served to maintain the cervical lordosis through the fused segments achieved by the formalized deformity correction described above compared to the kyphotic malalignment noted on preoperative radiologic studies. Screws were placed using standard technique with trajectories which were divergent in the sagittal plane and convergent in the axial plane for optimal purchase and load sharing with the interbody implants. Fixed angle 13 mm x 4.0 mm screws were placed at C5 bilaterally and at C4 on the right. Variable angle 13 mm x 4.0 mm screws were placed at C4 on the left and at C3 bilaterally to promote load sharing, force transmission and compression across the anterior column and interbody cages as well as the central implant chamber autograft. All screws were found to have optimal insertional and final fixation torque during placement as well as good fixation and final seating in the plate. The interbody implants as well as the anterior plate and screw construct were confirmed to be in good position on final intraoperative cross-table lateral fluoroscopic images which also confirmed excellent correction of kyphotic deformity and jehovah's witness of lordotic alignment. These images were uploaded to the [facility] PACS system for radiology documentation. The final plate- screw rotating locking mechanism was set over the screw heads at each level with good coverage so as to minimize the risk of screw loosening or protrusion. Continuous electrophysiological monitoring throughout the procedure showed no prolonged or persistent adverse changes at any point during the decompression, instrumentation, or at any other time during the case. Closure/Recovery - The surgical site was thoroughly irrigated and hemostasis was carefully achieved prior to closure. FloSeal (5 cc) was placed in the prevertebral space and lateral margins of the operated disc space around the implants where helpful for osseous and soft tissue hemostasis. The surgical site was found to be dry at the end of the procedure. Initial counts were correct prior to closure. The deep soft tissue layer was loosely reapproximated in a [id number] closure using #3-0 undyed Vicryl interrupted, simple suture technique. The platysma [id number] closure was also performed with #3-0 undyed Vicryl interrupted, simple suture technique. The superficial subcutaneous layer was closed with #3- 0 undyed Vicryl inverted, interrupted, simple sutures. The skin was closed using #4-0 undyed running subcuticular Monocryl suture followed by Steri-Strips applied with Mastisol. A standard, sterile medium island dressing was placed with good coverage. All counts were correct prior to removing the drapes. The Halter harness was removed and a Lea buttressed semi-rigid hard foam cervical collar was placed and optimally fitted prior to awakening the patient. The patient was extubated on the operating table without difficulty and then transferred to the hospital bed in the supine position taking care to stabilize the head and neck during transfer. Recovery Room Assessment: The patient was taken to the recovery room in stable condition where gross neurological examination showed normal function with no deficits or worsening compared to her baseline pre-operative assessments on initial recovery from anesthesia. In fact, there was the suggestion of some subtle initial postoperative subjective improvement in both her bilateral distal upper extremity sensory, motor and dexterity function compared to preoperative assessment by patient report. The patient will follow the usual postoperative protocol for multilevel anterior cervical discectomy, osteophytectomy and central canal as well as bilateral lateral recess and foraminal neural element decompression with reduction of spondylolisthesis, kyphotic deformity correction and anterior interbody local autograft fusion stabilized by intervertebral and anterior transvertebral instrumentation. This postoperative care plan will include standard overnight nursing care and pain control, early hospital postoperative extremity and ambulatory mobilization , collar use when out of bed and home discharge planning for the morning after surgery with instructions to minimize head and neck motion initially so as to optimize fusion healing. She will remain with head of bed elevated overnight with close nursing observation for any neck soft tissue swelling or adverse postoperative symptoms. She will try laying flat tomorrow prior to arranging final discharge so as to confirm that this position is comfortable and not associated with symptoms. She may require late discharge or possibly additional hospital inpatient overnight observation if she develops central pressure, meningeal or radicular irritation symptoms either overnight or when the fully recumbent position is trialed. Final discharge plan and timing will be determined after assessment on the morning of postoperative day #1. Once home, outpatient rehabilitation program will be arranged through the office to begin approximately 4 weeks after surgery assuming standard and uncomplicated postoperative course and following clearance at initial postoperative follow-up assessment. Given the multilevel nature of her fusion procedure and her intention to return to function as early as possible, a spinal fusion osteogenesis stimulator is recommended and will be ordered, applied and followed through the office. Discharge Disposition: PACU CC: Arturo URIAS,Franklin Gaviria; Grace URIAS,Mac Dill
== END 2017-10-23 21:12 | disposition home health service (06) | DRG 472 ==
LOC: SDA 01:37 → ENRESERV 14:15 → ENTRNSPT 15:52 → 2NB 16:09 → CMPTRNSPT 16:40 → ENTRNSPT 10-23 21:03 → EDTRNSPT 10-23 21:09 → EDTRNSPTSTS 10-23 21:09 → 2NB 10-23 21:12 → CMPTRNSPT 10-23 21:34
PROC: 00QT0ZZ Repair Spinal Meninges, Open Approach (ICD-10-PCS; principal; 2017-10-22)
PROC: 0RG20A0 Fusion of 2 or more Cervical Vertebral Joints with Interbody Fusion Device, Anterior Approach, Anterior Column, Open Approach (ICD-10-PCS; principal; 2017-10-22)
PROC: 0RB30ZZ Excision of Cervical Vertebral Disc, Open Approach (ICD-10-PCS; 2017-10-22)
PROC: 4A11X4G Monitoring of Peripheral Nervous Electrical Activity, Intraoperative, External Approach (ICD-10-PCS; 2017-10-22)
PROC: 0PB30ZZ Excision of Cervical Vertebra, Open Approach (ICD-10-PCS; 2017-10-22)
DX: M43.12 Spondylolisthesis, cervical region (principal); G97.41 Accidental puncture or laceration of dura during a procedure; G62.9 Polyneuropathy, unspecified; M48.02 Spinal stenosis, cervical region; M47.22 Other spondylosis with radiculopathy, cervical region; M40.202 Unspecified kyphosis, cervical region; E66.9 Obesity, unspecified; Z68.36 Body mass index [BMI] 36.0-36.9, adult; M50.11 Cervical disc disorder with radiculopathy, high cervical region; M25.78 Osteophyte, vertebrae; I10 Essential (primary) hypertension; M72.2 Plantar fascial fibromatosis; F32.9 Major depressive disorder, single episode, unspecified; K21.9 Gastro-esophageal reflux disease without esophagitis; Z96.641 Presence of right artificial hip joint; Z87.81 Personal history of (healed) traumatic fracture; Z87.891 Personal history of nicotine dependence
CPT/HCPCS: 2NBP; 36415; 72020; 88304; 97116-GO; 97161-GP; C1713; C9290; C9399; J0131; J0690; J1170; J2550; J7042; V2632

== ENCOUNTER 2018-04-10 03:20 | Inpatient (IN) | payer OTHER ==
--- NOTE | 2018-04-04 16:16 | History & Physical Pre-Op ---
General Information and HPI MD Statement: . I have seen and personally examined JOANA YADAV and documented this H&P. The patient is a 62 year old F who presented with a patient stated chief complaint of [neck pain of long duration neck pain and morethan a month duration]. Source of Information: patient Exam Limitations: no limitations History of Present Illness: 63-year-old woman with a series of complaints initially seen the result of work injury to place 03/27/2015. Because of her employment to turn around, tripped, fell motion from 1 pressures. She complained of injuries to her clavicle and chest neck and arm pain. This carried on a she had multiple problems at different levels she had loss of the necessity for C3 4 and C4 5 surgery which was performed in October she improved some over symptoms but continues to be markedly complaining of discomfort and is no Abnormal findings at C5 6 and C6 7 Allergies/Medications Allergies: Coded Allergies: No Known Allergies (03/27/18) Home Med list Aspirin (Children's Aspirin) 81 MG TAB.CHEW 1 TAB PO DAILY HEART HEALTH ( Reported) Atorvastatin Calcium (Lipitor) 10 MG TABLET 1 TAB PO DAILY CHOLESTEROL ( Reported) Carvedilol 6.25 MG TABLET 1 TAB PO BID HEART (Reported) Celecoxib (Celebrex) 200 MG CAPSULE 1 CAP PO BID PAIN (Reported) Diazepam 5 MG TABLET 1 TAB PO TIDPRN PAIN (Reported) Duloxetine HCl (Cymbalta) 60 MG CAPSULE.DR 1 CAP PO DAILY DEPRESSION ( Reported) Gabapentin (Neurontin) 300 MG CAPSULE 1 CAP PO QHS PAIN (Reported) Ranitidine (Ranitidine HCl) 150 MG TABLET 1 TAB PO BID REFLUX (Reported) Tramadol HCl (Tramadol HCl ER) 100 MG TAB.ER.24H 1 TAB PO DAILY PRN PAIN ( Reported) Compliance With Home Meds: UNKNOWN Past History Medical History Blood Transfusion Hx: No Neurological: NONE EENT: NONE Cardiovascular: hypertension Respiratory: NONE Gastrointestinal: NONE Hepatic: NONE Renal: NONE Musculoskeletal: PLANTAR FASCITIS pelvic fracture Psychiatric: NONE Endocrine: NONE Blood Disorders: NONE Cancer(s): NONE 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 Home Who Do You Live With? spouse Services at Home None Primary Language: Peruvian Smoking Status: Former Smoker ETOH Use: denies use Illicit Drug Use: denies illicit drug use Living Will? 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 Ambulation: independent IADLs Independent: shopping. Employment History Employment: Employed Profession/Employer: [employer] Review of Systems Review of Systems: She has any bowel bladder or sexual dysfunction. She has had epidural and facet injections without any relief Review of Systems Constitutional: Denies: no symptoms. EENTM: Reports: see HPI. Cardiovascular: Denies: no symptoms. Respiratory: Denies: no symptoms. GI: Denies: no symptoms. Genitourinary: Denies: no symptoms. Musculoskeletal: Denies: no symptoms. Skin: Denies: no symptoms. Neurological/Psychological: Reports: see HPI. Hematologic/Endocrine: Denies: no symptoms. Immunologic/Allergic: Denies: no symptoms. All Other Systems: Reviewed and Negative Post Menopausal: Yes Mammogram Testing Status: Unknown if test ever done Pap Smear Testing Status: Unknown if test ever done Colonoscopy Testing Status: Unknown if test ever done Comments Previsit her right face numbness and tingling in her neck and upper back and right hand and posterior headaches Exam & Diagnostic Data Last 24 Hrs of Vital Signs/I&O Ambulating p pending Physical Exam General Appearance Alert Skin scars from previous surgery HEENT decreased range of motion Neck paraspinous muscle spasm Lymphatic Cervical nl Cardiovascular Regular Rate Lungs Clear to Auscultation Abdomen Soft Neurological Strength at 5/5 X4 Ext, Normal Tone, Sensation Intact Extremities No Cyanosis Vascular Normal Pulses Breasts Breast appear nl (so consult for his meds as gl), No breast discharge ( Exam overall looks pretty wade), No breast masses (Displacing this gentleman is t) Reproductive (FEMALE) Normal female genitalia (is very significant long-term ) Pelvic (FEMALE) deferred to primary care Rectal deferred to primary care Last 24 Hrs of Labs/Zac: Review of lab work is pending workup by primary care Diagnostic Data ITS Data Unobtainable at this time EKG Results CC primary care note CXR Results Seen primary care note Other Results MRI of spondylosis C5 6 C6 7 Assessment/Plan Assessment/Plan: Patient has 2 levels of cervical spondylosis vascular problem. The required treatment. Indications for surgery alternative risks and possible complications were discussed at length. Patient elected to have surgery performed As Ranked By This Provider Problem List: 1. Cervical disc disease 2. Leg swelling 3. Spondylolisthesis of cervical region Copies To: Arturo URIAS,Alfa Gaviria
[~2018-04-10] VITALS: Ht 160 cm; Wt 104.1 kg
[~2018-04-10 03:20] MED LIST changes: +CELEBREX200 M1 PO; +DIAZEPAM5 M1 PO; +PERCOCET 5-3251 EACH PO
--- NOTE | 2018-04-10 11:53 | Operative Report ---
Operative/Inv Procedure Report Surgery Date: 04/10/18 Name of Procedure: #1 anterior cervical microscopic discectomy C5 6 C6 7 #2 preparation of space for fusion C5 6 C6 7 Pre-Operative Diagnosis: Cervical radiculopathy Herniated cervical disc C5 6 C6 7 Post-Operative Diagnosis: Same Estimated Blood Loss: 50ml to 100ml Surgeon/Business Department Chair: Grace URIAS,Mac Morris M.D.-co-surgeon Anesthesia: general endotracheal tube Monitors: Neurophysiology IV Fluids: D5 normal Implants: C Alfa Morris MD's note Urine Output: See anesthesia note Drains: None Specimens: H&P Microbiology: None Tourniquet: None Complications: None Condition: Stable Operative Indication: 62-year-old woman status post a work injury right had severe radiculopathy consecutive to upper disks at C3 4 C4 5 who improved but continued to have mechanical back pain as well as some left arm discomfort related to heart disks at C5 6 C6 7 Operative/Procedure Note Note: The patient was brought in supine intubated and received 2 g of intravenous antibiotics was placed in 15 pounds of weight on a halter traction device was slightly elevated her neck was prepped and draped usual sterile manner and the incision was created right above the clavicle Skin was incised and sharp dissection was carried out until the anterior cervical fascia which was very thick and partially's scarred from previous surgery The lower end of the previous plate was identified. Falkner were positioned and the space at C5 6 and C6 7 and this was confirmed by C-arm Following which anterior osteophytes were removed at C5 6 then C6 7 space entered at C5 6 and then C6 7 with 11 blade knife disc material removed with angled curet straight and up-biting pituitaries and micro-graspers. The space was then dilated at C56 with a glue reel operator and the posterior right at that osteophytes identified and opened with 1 and 2 mm Kerrisons the foramen a were also identified and opened widely with 2 mm Kerrisons until easy passage of nerve hooks At C67 the same procedure was restarted with opening of the posterior longitudinal ligament and removal of osteophytes both central and lateral and opening of the foramen a Once this was accomplished using a combination of curettes high-speed drill and rasps the spaces were fashioned to be ready for fusion including creating ridge in the posterior element following which the patient for fusion was allowed to proceed in this we dictated separately. It is to be noted that we removed the lower 2 screws from the superior plate prior to proceeding. Findings: Osteophytes and foraminal narrowing Discharge Disposition: PACU Additional Comments: Neurophysiology demonstrated intermittent episodes of left arm abnormal readings which resolved CC: Arturo URIAS,Alfa Gaviria
--- NOTE | 2018-04-10 13:38 | RADIOLOGY REPORT ---
EXAMINATION: CERVICAL SPINE 1 VIEW CLINICAL INFORMATION: C5-C6 and C6-C7 fusion. COMPARISON: MRI scan 04/02/2018.. Intraoperative films 10/22/2017. TECHNIQUE: 2 lateral views of the cervical spine were obtained in the OR. FINDINGS: The study redemonstrates the sequelae of the ACDF at the levels are C3-C4 and C4-C5. There is an anterior plate, and screws are noted in the bodies of C3 and C4; no definite screws noted in C5. There are intervertebral disc devices at C3-C4 and C4-C5. On the current study, there are sequelae of ACDF changes at C5-C6 and C6-C7, incompletely visualized in the lower cervical spine. IMPRESSION: 1. The study redemonstrates the sequelae of the ACDF at C3-C4 and C4-C5. 2. On the current study there appear to be new ACDF devices at C5-C6 and C6-C7.
--- NOTE | 2018-04-10 15:10 | Admission Core Measures ---
Acute Coronary Syndrome (CM) ACS Core Measures Acute Coronary Syndrome Diagnosis No Congestive Heart Failure (NEW) CHF Core Measures Congestive Heart Failure Diagnosis No Cerebrovascular Accident CVA Core Measures CVA/TIA Diagnosis No Venous Thromboembolism VTE Core Geoff (View Protocol) VTE Risk Factors Surgery No Mechanical VTE Prophylaxis d/t N/A MechProphylax Ordered No VTE Pharm Prophylaxis d/t Surgical Contraindication (POSTOP SPINE SURGERY) Problem List As ranked by this Provider includes Assessment & Plan 1. Cervical radiculopathy 2. Cervical herniated disc HOME MEDS Home Med List Aspirin (Children's Aspirin) 81 MG TAB.CHEW 1 TAB PO DAILY HEART HEALTH ( Reported) Atorvastatin Calcium (Lipitor) 10 MG TABLET 1 TAB PO DAILY CHOLESTEROL ( Reported) Carvedilol 6.25 MG TABLET 1 TAB PO BID HEART (Reported) Celecoxib (Celebrex) 200 MG CAPSULE 1 CAP PO BID PAIN (Reported) Diazepam 5 MG TABLET 1 TAB PO TIDPRN PAIN (Reported) Duloxetine HCl (Cymbalta) 60 MG CAPSULE.DR 1 CAP PO DAILY DEPRESSION ( Reported) Gabapentin (Neurontin) 300 MG CAPSULE 1 CAP PO QHS PAIN (Reported) Ranitidine (Ranitidine HCl) 150 MG TABLET 1 TAB PO BID REFLUX (Reported) Tramadol HCl (Tramadol HCl ER) 100 MG TAB.ER.24H 1 TAB PO DAILY PRN PAIN ( Reported)
--- NOTE | 2018-04-10 15:11 | Cons- Medical ---
Jeanne Stovall 04/10/18 1510: General Information and HPI Consulting Request Date of Consult: 04/11/18 Requested By: Grace URIAS,Mac Dill Reason for Consult: ventricualr bigeminy Source of Information: patient History of Present Illness: This is a 62-year-old female with past medical history of hypertension, hyperlipidemia, plantar fasciitis, previous pelvic fracture, previous right hip replacement who presented to [facility] on April 04, 2018 with chief complaint of chronic injuries to her clavicle, chest, neck and arm pain after which she was evaluated and was found to have 2 levels of cervical spondylolysis vascular problem that was deemed to require surgical management. She is day 0 post procedure which is anterior cervical microscopic discectomy C5, C6, C7 and preparation of space for fusion C5, C6 and C7 for cervical radiculopathy and herniated cervical disks in the same location. However postprocedure she was found to have multiple PVCs and ventricular bigeminy because of which medicine team as well as cardiology was consulted. Allergies/Medications Allergies: Coded Allergies: No Known Allergies (03/27/18) Home Med List: Aspirin (Children's Aspirin) 81 MG TAB.CHEW 1 TAB PO DAILY HEART HEALTH ( Reported) Atorvastatin Calcium (Lipitor) 10 MG TABLET 1 TAB PO DAILY CHOLESTEROL ( Reported) Carvedilol 6.25 MG TABLET 1 TAB PO BID HEART (Reported) Celecoxib (Celebrex) 200 MG CAPSULE 1 CAP PO BID PAIN (Reported) Diazepam 5 MG TABLET 1 TAB PO TIDPRN PAIN (Reported) Duloxetine HCl (Cymbalta) 60 MG CAPSULE.DR 1 CAP PO DAILY DEPRESSION ( Reported) Gabapentin (Neurontin) 300 MG CAPSULE 1 CAP PO QHS PAIN (Reported) Ranitidine (Ranitidine HCl) 150 MG TABLET 1 TAB PO BID REFLUX (Reported) Tramadol HCl (Tramadol HCl ER) 100 MG TAB.ER.24H 1 TAB PO DAILY PRN PAIN ( Reported) Review of Systems Review of Systems Constitutional: Denies: chills, diaphoresis, fever, malaise. Cardiovascular: Denies: chest pain, edema, orthopena, palpitations. Respiratory: Denies: cough, short of breath. GI: Denies: abdominal pain, bloating, constipation, diarrhea. 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 Home Who Do You Live With? spouse Services at Home: None Primary Language: Malagasy Smoking Status: Former Smoker ETOH Use: denies use Illicit Drug Use: denies illicit drug use Living Will? unknown Power of Vb Net Programmer/HCP? 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 Ambulation: independent IADLs Independent: shopping. Employment History Employment: Employed Profession/Employer: [employer] Exam & Diagnostic Data Last 24 Hrs of Vital Signs/I&O .. Physical Exam General Appearance: well developed/nourished, no apparent distress Eyes: Bilateral: normal appearance. Ears, Nose, Throat: neck in cervical collar Respiratory: normal breath sounds Cardiovascular: regular rate/rhythm Peripheral Pulses: 2+ radial (R) Gastrointestinal: normal bowel sounds, soft Last 24 Hrs of Labs/Zac: Laboratory Tests 04/10/18 1600: Anion Gap 7, Estimated GFR > 60, BUN/Creatinine Ratio 20.0 Diagnostic Data EKG Results sinus tachycardia, ventricular bigeminy Assessment/Plan Assessment/Plan This is a 62 yo female with past medical history of hypertension, hyperlipidemia , plantar fascitis,previous right hip replacement, chronic neck, clavicular, arm api now s/p anterior cervical microscopic discectomy C5, C6, C7 and preparation of space for fusion C5, C6 and C7 for cervical radiculopathy and herniated cervical disks in the same location. She was found to have ventricular bigeminy on EKG for 35 mins postop with no symptoms. Problem list alongwith assessment and plan 1.Ventricular Bigeminy 2.Chronic pain from cervical spondylosis 3. H/O GERD 4. H/O previous RBBB during hip sx -admit to telemetry for continuos cardiac monitoring -serial ekg/troponin -patient has outpatient nuclear stress test, please obtain records from recent nuclear stress test. -Check electrolytes and replete as needed -repeat echo per cardio -patient doesn't have any symptoms , is sitting comfortably. -ct home medications. -obtain cardio consult. Thank you for consulting the medical team we will follow with you. Consult Acknowledgment - Thank you for your consult request. New Clement 04/10/18 1531: Assessment/Plan Consult Acknowledgment - Thank you for your consult request. Attending MD Review Statement Attending Statement Attending MD Statement: examined this patient, discuss w/resident/PA/CIRCULAR SAW FILER, agreed w/resident/PA/CIRCULAR SAW FILER, reviewed EMR data (avail) Attending Assessment/Plan: Reason for consult- Vent bigeminy on EKG post operatively. pt underwent ACDF of C6-C7 today. Pt has prior h/o Incomplete RBBB and f/u with Dr Olvera and had recent nuclear stress test done which was ok according to the pt. Plan- will admit to tele . serial trop and will get EKG in am. will get cardio consult. f/u on bp control. Pt has h/o HTN and HLD.
--- NOTE | 2018-04-10 15:52 | PN- Neurology ---
Subjective Subjective: POSTOP CHECK Patient reports postop neck/shoulder pain, without radiculopathy. Denies numbness, tingling, chest pain, sob. In PACU, she was noted to have bigeminy on monitor, confirmed on ekg. Converted back to sinus rhythm in PACU. Dr. Aguilar, who is covering for her final inspector paper, Dr. Ham recommended monitoring patient on telemetry and medicine consult. Patient reports a hx of RBBB 10 years ago after a right hip replacement. Objective Vital Signs and I&Os afebrile, vss Physical Exam: Gen - A&O x3, resting comfortably in nad HEENT - hard collar in place, dressing with scant staining, appropriately tender amanda-incisionally, no hematoma noted Cardiac - S1S2 noted Lungs - CTAB Abd - obese, nontender Ext - moves all extremities, motor and sensory intact, no significant edema, alps in place Current Medications: Current Medications Sig/Memo Start time Last Medication Dose Route Stop Time Status Admin Acetaminophen 0 .STK-MED ONE 04/10 07 DC IV Atorvastatin Calcium 10 MG DAILY 04/11 0900 AC PO Carvedilol 6.25 MG BID 04/10 2100 AC PO Cefazolin Sodium 2,000 MG ONCE 04/10 0000 NR IV 04/10 2359 Celecoxib 200 MG BID 04/10 2100 AC PO Diazepam 5 MG TIDPRN 04/10 1430 AC PO Duloxetine HCl 60 MG DAILY 04/11 0900 AC PO Famotidine 20 MG BID 04/10 2100 AC PO Fentanyl Citrate 0 .STK-MED ONE 04/10 0708 DC .ROUTE Gabapentin 300 MG AT BEDTIME 04/10 2100 AC PO Hydromorphone HCl 0 .STK-MED ONE 04/10 1423 DC .ROUTE Hydromorphone HCl 0 .STK-MED ONE 04/10 1327 DC .ROUTE Hydromorphone HCl 0 .STK-MED ONE 04/10 1315 DC .ROUTE Hydromorphone HCl 0 .STK-MED ONE 04/10 1256 DC .ROUTE Hydromorphone HCl 0 .STK-MED ONE 04/10 0707 DC .ROUTE Ketorolac 0 .STK-MED ONE 04/10 1304 DC Tromethamine .ROUTE Ketorolac 0 .STK-MED ONE 04/10 0708 DC Tromethamine .ROUTE Ondansetron HCl 0 .STK-MED ONE 04/10 0707 DC .ROUTE Assessment/Plan Assessment: 62 F who is s/p ACDF C5-C6, C6-F7 with postop bigeminy, which converted back to sinus rhythm with occasional PVCs in PACU and expected postop pain Plan: Transfer to telemetry Advance reg diet, IVF Postop abx - ancef x2 Pain regimen prn Home meds ordered, asa 81 on hold DVT ppx - alps, ambulation PT eval, ambulate w/ brace Follow up medicine recommendations Appreciate medicine/cardiologys involvement
[2018-04-10 18:03] VITALS: BP 142/86
[2018-04-10 19:30] VITALS: BP 150/72
[2018-04-10 21:30] VITALS: BP 148/66
--- NOTE | 2018-04-10 22:30 | Operative Report ---
Operative/Inv Procedure Report Surgery Date: 04/10/18 Operative/Procedure Note Note: Preoperative Holding Area Assessment/Preparation: The patient was evaluated in the preoperative holding area prior to surgery and no clinical changes or contraindications to surgical intervention were documented compared to the preoperative office and clearance evaluations. There were no new findings on examination. As in the office, the patient was otherwise grossly neurovascularly intact in both upper extremities to standard immediate preoperative testing. No new concerns were identified that would alter the treatment recommendations, surgical plan, assessment of potential risk or benefit or the prognosis for outcome. The surgical site and plan were confirmed with the patient and preoperative paperwork was finalized. Signed operative consent had been obtained directly from the patient prior to surgery in the office with good patient understanding of, acceptance of and agreement with all reasonable potential treatment options , viable care alternatives, indications, goals, expectations, limitations, risks and benefits of the planned procedure as well as proposed use of structural implants and bone graft materials. Time was specifically provided by the surgeon for the patient and family to ask any questions, voice any concerns or report any health changes and none were communicated. Consent was briefly reviewed and confirmed by the patient prior to the administration of any significant anesthetic or other sedating medications. The region of the intended surgical site was cleansed, prepped and marked per protocol. The surgeons, anesthesia care team members, and operating room staff confirmed the patient identity, surgical procedure, and operative site as well as other clinical details with the patient in an initial documented preoperative confirmation (awake time out) prior to the administration of significant sedation or anesthesia. Prior to receiving any preoperative medications, the patient confirmed [her] oral intake status as NPO since midnight prior to surgery. Surgical Procedure: Dr. Morris and Dr. Edwards were both present for and participated equally as co-surgeons in all clinically significant phases of the surgical procedure documented below as well as for all critical intraoperative and perioperative decisions and interventions. The primarily orthopaedic spinal osseous structural portions of the procedure are described in greatest detail in this operative report. Refer to Dr. Mora Neurosurgical operative report for additional details particularly regarding the primarily neurological portions of the procedure. Set-Up/Positioning/Exposure - The patient was brought to the operating room in stable condition and underwent uncomplicated induction of general anesthesia, intubation, and placement of all appropriate monitors, lines, tubes and catheters without difficulty per anesthesia protocol. Appropriate antibiotics were administered per hospital spine surgical protocol based on patient body mass. Corticosteroids were requested by anesthesia primarily for optimal airway management and nausea prophylaxis, were approved by the surgeons and were administered per anesthesia protocol. The patient was positioned supine on the operating table in standard fashion for an anterior cervical discectomy and instrumented fusion per standard protocol so as to protect all structures and pressure points. Harness cervical traction was applied in standard fashion and with appropriate stabilizing weight for a lower cervical procedure. Electrophysiological monitoring electrodes were placed per standard monitoring protocol. Wrist cuffs were placed with sufficient circumferential approximation so that bilateral upper extremity traction could be applied during the case if necessary for radiologic visualization, but loose enough that there was no pressure to the wrists when traction was not being applied. Care was taken to insure that all IV sites and monitoring leads were protected. The arms were well padded and tucked at the patient's sides, again taking care to protect all IV sites and monitoring leads. Baseline preoperative electrophysiological monitoring readings were obtained and no gross abnormalities were noted. A cross-table lateral fluoroscopic image was obtained with a radiopaque skin marker in place to determine the optimal level for incision, to document optimized intraoperative cervical alignment and to confirm adequate radiologic visualization of the intended operative levels. The intended incision was planned within the primary skin crease closest to the radiopaque marker and was delineated with a surgical ink marker prior to prep and drape. Immediately prior to prep and drape, the surgeons, anesthesia care team, and operating room staff again documented the patient identity, surgical procedure, and operative site as well as other clinical details in a final documented confirmation ("final time out") per standard hospital and [facility] protocols. In general, the approach, exposure, initial hemostasis, retractor placement, fluoroscopic identification of intended operative level, use of the operating microscope, discectomy, posterior disc space endplate and uncovertebral osteophytectomy and multizone (central and foraminal) neural element decompression portions of the procedure are dictated in greatest detail by Dr. Edwards in his Neurosurgery operative report and are only briefly reviewed here. Refer to the Neurosurgical operative document for additional details regarding the primary neurosurgical portions of the procedure. The arthrodesis portions of the procedure including preparation and decortication of the disk space, harvest, preparation and implantation of graft material as well as implantation of interbody and transvertebral instrumentation is described in greatest detail in this operative report. The surgical field was prepped and draped using standard sterile technique with Duraprep, sterile towels, an Ioband incise drape and an edge-adhesive rectangular surgical field drape. In brief summary of the initial neurosurgical dissection and decompression portion of the procedure (covered in greater detail in the neurosurgical operative report), following sterile prep and drape as described above, the previously marked right paramedian anterior cervical incision was infiltrated with local anesthetic, and made in a transverse curvilinear fashion within a major anterior neck skin crease overlying the intended operative cervical spinal level using a #10 scalpel blade. The incision was extended from just lateral of the midline to a point just medial of the medial palpated edge of the sternocleidomastoid muscle at that level. Hemostasis was achieved using Bovie and Bipolar electrocautery beginning with the incision and continuing throughout the procedure with settings appropriate to each progressive level. The dissection was carried through the subcutaneous layer in line with the incision, both the upper and lower skin flaps were mobilized so as to minimize traction injury, and the platysma was then bluntly dissected and divided longitudinally in line with its fibers to expose the underlying strap muscles. Soft tissue dissection continued down to the prevertebral space in the plane between the esophagus and trachea medially and the palpated pulse of the vertebral artery laterally taking care to gently manually retract and protect these structures throughout the dissection using hand-held Cloward retractors. With the soft tissue dissection complete down to the prevertebral space, the anterior longitudinal ligament was identified overlying the target disk space levels were exposed sufficiently to allow placement of radiographic markers. Two spinal needles were bent in a closely spaced double right-angle configuration to prevent excessive penetration, gently placed into the Two [ exposed] disks and confirmed to be at the intended operative levels (C5-C6 and C6-C7) on cross-table lateral fluoroscopic image. Once the appropriate levels were fluoroscopically confirmed, dissection was optimized to fully expose both intended operative disc spaces as well as the adjacent medial margins of the longus colli muscles which were elevated using Bipolar and Bovie electrocautery to optimize stable placement of the transverse serrated-edge ("toothed") Trim- Line retractor blades and self-retaining retractor arm. Use of this submuscular dissection technique insured full horizontal exposure while limiting pressure on the more superficial medial and lateral structures so as to minimize risk of potential adverse effects associated with retraction. The longitudinal smooth- edge Trim-Line retractor blades and arm were then placed using standard technique and configuration so as to optimize vertical exposure while taking care to protect surrounding structures. The Leica operating microscope was sterilely draped and positioned over the operative site so as to optimize illumination and visualization for the microsurgical decompressive portion of the procedure. Discectomy/Osteophytectomy/Neural Decompression - After confirming optimized exposure and visualization, a rectangular anterior annulectomy was performed first at C5-C6 using a #11 scalpel blade. The disc space was gently distracted using a long-armed cervical intervertebral mechanical spreader operator and a majority of the discectomy was performed with straight and curved curettes alternating with straight and angled pituitary rongeurs down to the level of the uncovertebral joints and posterior disk space margin. The disk material contained within the disk space and removed during initial discectomy was degenerative at this level consistent with the decreased signal intensity seen on preoperative MRi. Disrupted and disassociated disk fragments were found extending within and beyond the spondylotic disk-osteophyte complex and degenerative posterior longitudinal ligament into the ventral spinal canal and foraminal zones contributing to encroachment and neural compression correlating with preoperative MRI findings. The primary compressive disk fragment and all smaller impinging fragments were gently removed with a ball tip nerve hook and micro-pituitary rongeur. All resected disc material was sent to pathology for analysis per hospital protocol. Using curved curettes and Kerrison rongeurs, the posterior longitudinal ligament and all impinging osteophytes were resected. Bilateral foraminotomies were then performed using Kerrison rongeurs to fully decompress all exiting neural structures at this initial operative level. Upon completion of the decompression, a ball-tipped [id number]-ylcyo-sowg was gently passed out each foramen ventral to the neural elements to document clear and unimpeded passage of the exiting root without residual stenosis or compression. Both exit zones as well as the central canal were found to be patent and without residual compression following the discectomy, osteophytectomy and foraminotomy decompressive portions of the procedure. All decompressed bone fragments as well as subsequent Mid[place] Stan drillings of the anterior osteophytes and endplates were saved and cleaned of any attached soft tissue for later reimplantation as morselized local autograft. No significant or sustained irritability, hyperactive neural firing, muscle contraction or electrophysiological monitoring changes were noted on initial posterior disk fragment and osteophyte removal or during foraminotomy. Hemostasis of osseous and epidural bleeding was achieved using Thrombin soaked Gelfoam and paddies gently applied and removed by irrigation with all bleeding controlled. Final complete central and foraminal decompression was confirmed by gentle passage of a blunt nerve hook behind both the upper and lower vertebral bodies and out each foramen without resistance. Discectomy, osteophytectomy and foraminotomy decompressive procedures were performed at the C6-C7 level using identical technique with similar findings and final documentation of complete neural element decompression without significant electrophysiological signal change or abnormality. With the decompression completed attention was then turned to the fusion portion of the procedure. Arthrodesis/Instrumentation -
[2018-04-10 23:00] VITALS: BP 148/66
[2018-04-10 23:30] VITALS: BP 128/72
[2018-04-11 03:30] VITALS: BP 138/72
--- NOTE | 2018-04-11 07:15 | PN- Medicine Consult ---
Yoel Mchugh 04/11/18 0714: Assessment/PlanMedical Consult Assessment/Plan Assessment: Ms Marrero is a 62-year-old woman status post a work injury right had severe radiculopathy consecutive to upper disks at C3-4, C4-5 who improved but continued to have mechanical back pain as well as some left arm discomfort, who underwent anterior cervical microscopic discectomy C5, C6, C7 and preparation of space for fusion C5, C6 and C7 for cervical radiculopathy and herniated cervical disks in the same location on 04/10/2018 by Grace URIAS,Mac Dill and Alfa Morris M.D. He has a medical history of hyperlipidemia, hypertension and previous RBBB ( dx'ed 10 yrs ago). After the procedure, he was found to have multiple PVCs and ventricular bigeminy, and was monitored on telemetry. Etiology in his case of having ventricular bigeminy could be due to previous scarring, ACS, electrolyte abnormalities, operative anesthesia. Given PVCs, APBs the patient was monitored on telemetry with no evidence of nonsustained V. tach or ventricle tachycardia. Unclear if she has any left ventricular dysfunction or has any mitral valvular issues for which she would need an echocardiogram. Pertinent lab findings: Potassium 4.5, bicarbonate 26, BUN 13, creatinine 0.7. Cardiac enzymes-troponin I-0.01, 0.01, 0.01. No echocardiogram on record. Problem list: #1 multiple PVCs, APBs with ventricular bigeminy #2 cervical spondylosis, postoperative day 1 ACDF of C6-C7 #3 history of hypertension, hyperlipidemia Plan: -Recommend cardiology consult. -Recommend checking potassium and magnesium, and repeat to keep potassium ~4, magnesium ~2. -Given multiple APBs, and PVCs CAD needs to be ruled out. -Monitor for any NSVTs. -Check echocardiogram after conferring w/ the cardiology. -Monitor vitals, and restart anti-hypertensives if BP is stable and there is no e/o of infection -DVT Prophylaxis at all times. -Continue carvedilol, and icrease the dose if needed. Plan: as above Problem List: 1. Cervical radiculopathy 2. Cervical herniated disc 3. Cervical disc disease Subjective Subjective: Doing well. Patient reports postop neck and shoulder pain, without radiculopathy. Pain is adequately controlled. Vitals remained stable overnight. Blood pressure in the range-Systolic 128-150/66-72. Pain is adequately controlled. Telemetry events- multiple Atrial premature beats, PVCs. Review of Systems Constitutional: Reports: see HPI. Objective Last 24 Hrs of Vital Signs/I&O Vital Signs Date Time Temp Pulse Resp B/P B/P Pulse O2 O2 Flow FiO2 Mean Ox Delivery Rate 04/11 0330 98.7 68 20 138/72 95 Room Air 04/10 2330 98.5 75 20 128/72 91 Room Air 04/10 2300 98.7 98 20 148/66 96 Room Air Room Air 04/10 2130 98.7 94 19 148/66 95 Room Air Room Air 04/10 2016 89 150/72 04/10 1930 98.0 87 19 150/72 98 Room Air Room Air 04/10 1803 98.2 88 20 142/86 96 Room Air Intake & Output 04/11 0800 04/11 0000 04/10 1600 Intake Total 1765 400 Output Total Balance 1765 400 Intake, IV 1765 200 Intake, Oral 200 Patient 210 lb Weight Physical Exam Other Physical Findings: Gen - A&O x3, resting comfortably HEENT - hard collar in place, dressing with scant staining, appropriately tender amanda-incisionally, no hematoma noted. Cardiac - S1S2 noted Lungs - CTAB Abd - obese, nontender Ext - moves all extremities, motor and sensory intact, no significant edema, alps in place Current Medications: Current Medications Sig/Memo Start time Last Medication Dose Route Stop Time Status Admin Atorvastatin Calcium 10 MG DAILY 04/11 09 DC PO Atorvastatin Calcium 10 MG DAILY 04/11 09 AC PO Carvedilol 6.25 MG BID 04/10 2100 DC PO Carvedilol 6.25 MG BID 04/10 2100 AC 04/10 PO 2016 Cefazolin Sodium 2 GM Q8H 04/10 2015 DC 04/11 N/A 1 UNIT IV 04/11 0444 0355 Cefazolin Sodium 2 GM IQ8 04/10 1600 DC N/A 1 UNIT IV 04/11 0029 Cefazolin Sodium 2,000 MG ONCE 04/10 0000 DC IV 04/10 2359 Celecoxib 200 MG BID 04/10 2100 DC PO Celecoxib 200 MG BID 04/10 2100 AC 04/10 PO 2016 Dextrose/Sodium 1,000 ML .[id number] 04/10 1930 AC 04/10 Chloride IV 1933 Diazepam 5 MG TIDPRN 04/10 1430 AC 04/11 PO 0031 Docusate Sodium 100 MG BID 04/10 2100 AC 04/10 PO 2016 Duloxetine HCl 60 MG DAILY 04/11 09 DC PO Duloxetine HCl 60 MG DAILY 04/11 900 AC PO Famotidine 20 MG BID 04/10 2100 DC PO Famotidine 20 MG BID 04/10 2100 AC 04/10 PO 2016 Gabapentin 900 MG AT BEDTIME 04/11 2100 AC 04/10 PO 2336 Gabapentin 0 .STK-MED ONE 04/10 2338 DC PO Gabapentin 300 MG AT BEDTIME 04/10 2100 DC PO Gabapentin 300 MG AT BEDTIME 04/10 2100 DC PO Hydromorphone HCl 0 .STK-MED ONE 04/10 1423 DC .ROUTE Hydromorphone HCl 0 .STK-MED ONE 04/10 1327 DC .ROUTE Hydromorphone HCl 0 .STK-MED ONE 04/10 1315 DC .ROUTE Hydromorphone HCl 0 .STK-MED ONE 04/10 1256 DC .ROUTE Ketorolac 15 MG Q8P PRN 04/10 1445 AC Tromethamine IM Ketorolac 0 .STK-MED ONE 04/10 1304 DC Tromethamine .ROUTE Morphine Sulfate 2 MG Q2P PRN 04/10 1930 AC 04/11 IV 0359 Ondansetron HCl 4 MG Q6P PRN 04/10 1930 AC IV Oxycodone/ 1 TAB Q4P PRN 04/10 1930 AC 04/11 Acetaminophen PO 0626 Oxycodone/ 2 TAB Q4P PRN 04/10 1930 AC 04/11 Acetaminophen PO 0031 Polyethylene Glycol 17 GM DAILY 04/11 09 AC PO Results Last 24 Hrs Lab/Zac Results: Laboratory Tests 04/11/18 0410: Troponin I < 0.01 04/10/18 2210: Troponin I < 0.01 04/10/18 1800: Anion Gap 10, Estimated GFR > 60, BUN/Creatinine Ratio 18.6 04/10/18 1600: Anion Gap 7, Estimated GFR > 60, BUN/Creatinine Ratio 20.0, Troponin I < 0.01 Microbiology 04/10 0755 URINE ROUT: Urine Culture - RECD [place] 04/11/18 1206: Attending MD Review Statement Attending Sign Off Attending Cosign Statement: I have: examined this patient, reviewed avalbl EMR data, personally reviewd images, discussd w/resident/PA/LIFE ENRICHMENT DIRECTOR, discussed mgmt plan w/pt. Other Findings: Reviewed pts EKG showing some PAC's and PVC's . Will review with gas or water meter installer the EKG and see what they recommend. her labs have been ok . d/w pt the care plan.
[2018-04-11 08:00] VITALS: BP 122/80
--- NOTE | 2018-04-11 10:35 | PN- Neurosurgical ---
See Addendum Subjective Subjective: Patient doing well this am. Pain is well controlled, tolerating a regular diet, ambulating and voiding without any difficulty. No other issues or complaints. Objective Vital Signs and I&Os Vital Signs Date Time Temp Pulse Resp B/P B/P Pulse O2 O2 Flow FiO2 Mean Ox Delivery Rate 04/11 0952 98.7 68 20 138/72 04/11 0330 98.7 68 20 138/72 95 Room Air 04/10 2330 98.5 75 20 128/72 91 Room Air 04/10 2300 98.7 98 20 148/66 96 Room Air Room Air 04/10 2130 98.7 94 19 148/66 95 Room Air Room Air 04/10 2016 89 150/72 04/10 1930 98.0 87 19 150/72 98 Room Air Room Air 04/10 1803 98.2 88 20 142/86 96 Room Air Intake & Output 04/11 1600 04/11 0800 04/11 0000 04/10 1600 04/10 0800 04/10 0000 Intake Total 1765 400 Output Total Balance 1765 400 Intake, IV 1765 200 Intake, Oral 200 Patient 210 lb Weight Physical Exam: General: A, A, NAD HEENT: NCAT, Hard cervical collar in place, dsg with one area of sanginous strikethrough, appropriately ttp, no hematoma, seroma, or expanding ecchymosis noted Extremities: No clubbing, cyanosis or edema, light touch sensation intact, 5/5 muscle strength x all 4 extremities Current Medications: Current Medications Sig/Memo Start time Last Medication Dose Route Stop Time Status Admin Atorvastatin Calcium 10 MG DAILY 04/11 900 DC PO Atorvastatin Calcium 10 MG DAILY 04/11 09 AC 04/11 PO 0952 Carvedilol 6.25 MG BID 04/10 2100 DC PO Carvedilol 6.25 MG BID 04/10 2100 AC 04/11 PO 0952 Cefazolin Sodium 2 GM Q8H 04/10 2015 DC 04/11 N/A 1 UNIT IV 04/11 0444 0355 Cefazolin Sodium 2 GM IQ8 04/10 1600 DC N/A 1 UNIT IV 04/11 0029 Cefazolin Sodium 2,000 MG ONCE 04/10 0000 DC IV 04/10 2359 Celecoxib 200 MG BID 04/10 2100 DC PO Celecoxib 200 MG BID 04/10 2100 AC 04/11 PO 0952 Dextrose/Sodium 1,000 ML .[id number] 04/10 1930 04/11 Chloride IV 0954 Diazepam 5 MG TIDPRN 04/10 1430 AC 04/11 PO 0031 Docusate Sodium 100 MG BID 04/10 2100 AC 04/11 PO 0952 Duloxetine HCl 60 MG DAILY 04/11 900 DC PO Duloxetine HCl 60 MG DAILY 04/11 09 AC 04/11 PO 0952 Famotidine 20 MG BID 04/10 2100 DC PO Famotidine 20 MG BID 04/10 2100 AC 04/11 PO 0952 Gabapentin 900 MG AT BEDTIME 04/11 2100 AC 04/10 PO 2336 Gabapentin 0 .STK-MED ONE 04/10 233 DC PO Gabapentin 300 MG AT BEDTIME 04/10 2100 DC PO Gabapentin 300 MG AT BEDTIME 04/10 2100 DC PO Hydromorphone HCl 0 .STK-MED ONE 04/10 1423 DC .ROUTE Hydromorphone HCl 0 .STK-MED ONE 04/10 1327 DC .ROUTE Hydromorphone HCl 0 .STK-MED ONE 04/10 1315 DC .ROUTE Hydromorphone HCl 0 .STK-MED ONE 04/10 1256 DC .ROUTE Ketorolac 15 MG Q8P PRN 04/10 1445 AC Tromethamine IM Ketorolac 0 .STK-MED ONE 04/10 1304 DC Tromethamine .ROUTE Morphine Sulfate 2 MG Q2P PRN 04/10 1930 04/11 IV 0359 Ondansetron HCl 4 MG Q6P PRN 04/10 1930 IV Oxycodone/ 1 TAB Q4P PRN 04/10 1930 04/11 Acetaminophen PO 0626 Oxycodone/ 2 TAB Q4P PRN 04/10 1930 AC 04/11 Acetaminophen PO 0953 Polyethylene Glycol 17 GM DAILY 04/11 09 AC 04/11 PO 0954 Results Last 48 Hours of Labs: Laboratory Tests 04/11 04/10 04/10 04/10 0410 2210 1800 1600 Chemistry Sodium (137 - 145 mmol/L) 138 138 Potassium (3.5 - 5.1 mmol/L) 4.5 4.5 Chloride (98 - 107 mmol/L) 103 105 Carbon Dioxide (22 - 30 mmol/L) 25 26 Anion Gap (5 - 16) 10 7 BUN (7 - 17 mg/dL) 13 14 Creatinine (0.5 - 1.0 mg/dL) 0.7 0.7 Estimated GFR (>60 ml/min) > 60 > 60 BUN/Creatinine Ratio (7 - 25 %) 18.6 20.0 Troponin I (< 0.11 ng/ml) < 0.01 < 0.01 < 0.01 Assessment/Plan Assessment/Plan This is a 62 F who is POD #1 s/p ACDF C5-C6, C6-F7. Postoperative course complicated by bigeminy and PVC's in the PACU. Awaiting cardiology consult. Appreciate medicine input. Plan for possible discharge later today. In the meantime continue regular diet, ambulation, prn analgesia and antiemetics as well as GI Px, alps for DVT Px, IS, turn/cough/deep breathe, hard collar, and neuro checks. Case d/w attending who will see the patient later today. Await recommendations from medicine and cardiology. Will continue to monitor closely. Problem List: 1. Spondylolisthesis of cervical region 2. Cervical disc disease 3. Cervical herniated disc 4. Cervical radiculopathy Core Measures Venous Thromboembolism VTE Risk Factors Surgery No Mechanical VTE Prophylaxis d/t N/A MechProphylax Ordered No VTE Pharm Prophylaxis d/t Surgical Contraindication (POSTOP SPINE SURGERY)
[2018-04-11] MEDS ORDERED: MIRALAX119 GM PO (10:46)
[2018-04-11] MEDS ORDERED: DOCUSATE SODIU100 M3 PO (10:46)
[2018-04-11] MEDS ORDERED: PERCOCET 5-3251 EACH PO (10:46)
--- NOTE | 2018-04-11 10:59 | Patient Discharge Instructions ---
Discharge Instructions General Discharge Information You were seen/treated for: Anterior cervical discectomy and fusion You had these procedures: Anterior cervical discectomy and fusion Watch for these problems: Bleeding, signs of infection including redness, swelling or unusual drainage, fevers >101, increased pain, difficulty swallowing, new numbness or weakness, chest pain, cough, trouble breathing or any other problems, questions or concerns Do not soak the wound: Yes Daily wet to dry dressings: No No bath, but you may shower: Yes Special Instructions: No lifting >5lbs, no bending, twisting, stay in collar at all times until further instructed by Dr. Edwards. Continue your carvedilol 6.25 mg twice daily. Follow up with Dr. Ham in 3 weeks Diet Continue normal diet: Yes Activity Full Activity/No Limits: No Activity Self Limited: Yes Pounds, do NOT lift more than: 5 Activity Limited to: Weight bear as tolerated Acute Coronary Syndrome Inclusion Criteria At DC or during hospital stay patient has or had the following: ACS DIAGNOSIS No Discharge Core Measures Meds if any: Prescribed or Continued at Discharge Meds if any: NOT Prescribed or Continued at Discharge Congestive Heart Failure Inclusion Criteria At DC or during hospital stay patient has or had the following: CHF DIAGNOSIS No Discharge Core Measures Meds if any: Prescribed or Continued at Discharge Meds if any: NOT Prescribed or Continued at Discharge Cerebrovascular accident Inclusion Criteria At DC or during hospital stay patient has or had the following: CVA/TIA Diagnosis No Discharge Core Measures Meds if any: Prescribed or Continued at Discharge Meds if any: NOT Prescribed or Continued at Discharge Venous thromboembolism Inclusion Criteria VTE Diagnosis No VTE Type NONE VTE Confirmed by (Test) NONE Discharge Core Measures - Per Current guidelines, there needs to be overlap - treatment for the first 5 days of Warfarin therapy. - If discharged on Warfarin prior to 5 days of - overlap therapy, the patient will need to be - assessed for post discharge needs including - *Post discharge parental anticoagulation - *Warfarin and/or parental anticoagulation education - *Follow up date to check INR post discharge At least 5 days overlap therapy as Inpatient No Meds if any: Prescribed or Continued at Discharge Note: Overlap Therapy is Warfarin and Anticoagulant Meds if any: NOT Prescribed or Continued at Discharge
--- NOTE | 2018-04-11 11:08 | Surg Short-stay <48hrs Dis Sum ---
Visit Information Visit Dates Admission Date: 04/10/18 Discharge Date: 04/11/18 Surgical Short Stay DC Summary Admission Diagnosis: Cervical Disease Final Diagnosis: same Procedure(s): Anterior cervical discectomy and fusion Summary/Significant Findings: This is a 62 F who presented electively for an ACDF C5-C6, C6-F7. Postoperative course complicated by bigeminy and PVC's in the PACU. She was seen by medicine and cardiology for this. She was placed on telemetry and followed with EKG and troponins that were negative throughout hospital course. By time of discharge she was ambulating, voiding, tolerating a regular diet and pain was well controlled with oral analgesia. Full details of her hospital course, operative report and diagnostic studies can be found in her electronic chart. Condition at Discharge: stable Discharge Disposition: home or self care Discharge instructions provided to patient/family: Yes Post discharge follow-up plan: Follow up with Dr. Edwards in one week Copies to: Grace URIAS,Mac Dill
--- NOTE | 2018-04-11 13:37 | Cons- Cardiology ---
General Information and HPI Consulting Request Date of Consult: 04/11/18 Requested By: Grace URIAS,Mac Dill Reason for Consult: Abnormal EKG with ventricular ectopy Source of Information: patient, old records Exam Limitations: no limitations History of Present Illness: The patient is a 62-year-old female who is usually followed by Dr. Ham. I am covering for them today. The patient had C-spine surgery earlier today and was noted in recovery room to have ventricular ectopy and ventricular bigeminy. In view of this fact, the patient was admitted to the telemetry floor for monitoring and further evaluation. Today, the patient is feeling well. Her ventricular arrhythmia/ectopy has improved. She continues to have atrial ectopy with brief runs of nonsustained supraventricular tachycardia on the supervisor public message service. The patient notes that she does have a history of palpitations, however, when avoiding caffeine he seem to be better. She denies any other cardiovascular symptoms. Allergies/Medications Allergies: Coded Allergies: No Known Allergies (03/27/18) Home Med List: Aspirin (Children's Aspirin) 81 MG TAB.CHEW 1 TAB PO DAILY HEART HEALTH ( Reported) Atorvastatin Calcium (Lipitor) 10 MG TABLET 1 TAB PO DAILY CHOLESTEROL ( Reported) Carvedilol 6.25 MG TABLET 1 TAB PO BID HEART (Reported) Celecoxib (Celebrex) 200 MG CAPSULE 1 CAP PO BID PAIN (Reported) Diazepam 5 MG TABLET 1 TAB PO TIDPRN PAIN (Reported) Duloxetine HCl (Cymbalta) 60 MG CAPSULE.DR 1 CAP PO DAILY DEPRESSION ( Reported) Gabapentin (Neurontin) 300 MG CAPSULE 1 CAP PO QHS PAIN (Reported) Oxycodone HCl/Acetaminophen (Percocet 5-325 MG Tablet) 5 MG-325 MG TABLET 1-2 TAB PO Q4-6 PRN PRN pain Ranitidine (Ranitidine HCl) 150 MG TABLET 1 TAB PO BID REFLUX (Reported) Tramadol HCl (Tramadol HCl ER) 100 MG TAB.ER.24H 1 TAB PO DAILY PRN PAIN ( Reported) Current Medications: Current Medications Sig/Memo Start time Last Medication Dose Route Stop Time Status Admin Atorvastatin Calcium 10 MG DAILY 04/11 09 DC PO Atorvastatin Calcium 10 MG DAILY 04/11 0900 AC 04/11 PO 0952 Carvedilol 6.25 MG BID 04/10 2100 DC PO Carvedilol 6.25 MG BID 04/10 2100 AC 04/11 PO 0952 Cefazolin Sodium 2 GM Q8H 04/10 2015 DC 04/11 N/A 1 UNIT IV 04/11 0444 0355 Cefazolin Sodium 2 GM IQ8 04/10 1600 DC N/A 1 UNIT IV 04/11 0029 Cefazolin Sodium 2,000 MG ONCE 04/10 0000 DC IV 04/10 2359 Celecoxib 200 MG BID 04/10 2100 DC PO Celecoxib 200 MG BID 04/10 2100 AC 04/11 PO 0952 Dextrose/Sodium 1,000 ML .[id number] 04/10 193 AC 04/11 Chloride IV 0954 Diazepam 5 MG TIDPRN 04/10 1430 AC 04/11 PO 0031 Docusate Sodium 100 MG BID 04/10 2100 AC 04/11 PO 0952 Duloxetine HCl 60 MG DAILY 04/11 09 DC PO Duloxetine HCl 60 MG DAILY 04/11 0900 AC 04/11 PO 0952 Famotidine 20 MG BID 04/10 2100 DC PO Famotidine 20 MG BID 04/10 2100 AC 04/11 PO 0952 Gabapentin 900 MG AT BEDTIME 04/11 2100 AC 04/10 PO 2336 Gabapentin 0 .STK-MED ONE 04/10 2338 DC PO Gabapentin 300 MG AT BEDTIME 04/10 2100 DC PO Gabapentin 300 MG AT BEDTIME 04/10 2100 DC PO Hydromorphone HCl 0 .STK-MED ONE 04/10 1423 DC .ROUTE Ketorolac 15 MG Q8P PRN 04/10 1445 AC Tromethamine IM Morphine Sulfate 2 MG Q2P PRN 04/10 1930 AC 04/11 IV 1140 Ondansetron HCl 4 MG Q6P PRN 04/10 1930 AC IV Oxycodone/ 1 TAB Q4P PRN 04/10 1930 AC 04/11 Acetaminophen PO 0626 Oxycodone/ 2 TAB Q4P PRN 04/10 1930 AC 04/11 Acetaminophen PO 0953 Polyethylene Glycol 17 GM DAILY 04/11 09 AC 04/11 PO 0954 Past History Medical History Blood Transfusion Hx: No Neurological: NONE EENT: NONE Cardiovascular: hypertension Respiratory: NONE Gastrointestinal: NONE Hepatic: NONE Renal: NONE Musculoskeletal: PLANTAR FASCITIS pelvic fracture Psychiatric: NONE Endocrine: NONE Blood Disorders: NONE Cancer(s): NONE PAROLE OR PROBATION OFFICER/Reproductive: NONE Surgical History Surgical History: R HIP REPLACEMENT R HIP REPLACEMENT Psychosocial History Where Do You Live? Home Who Do You Live With? spouse Services at Home: None Primary Language: Egyptian Smoking Status: Former Smoker ETOH Use: denies use Illicit Drug Use: denies illicit drug use Living Will? unknown Power of Rehabilitation Therapist/HCP? 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 Ambulation: independent IADLs Independent: shopping. Employment History Employment: Employed Profession/Employer [employer] Exam & Diagnostic Data Vital Signs and I&O Vital Signs Date Time Temp Pulse Resp B/P B/P Pulse O2 O2 Flow FiO2 Mean Ox Delivery Rate 04/11 0952 98.7 68 20 138/72 04/11 0330 98.7 68 20 138/72 95 Room Air 04/10 2330 98.5 75 20 128/72 91 Room Air 04/10 2300 98.7 98 20 148/66 96 Room Air Room Air 04/10 2130 98.7 94 19 148/66 95 Room Air Room Air 04/10 2016 89 150/72 04/10 1930 98.0 87 19 150/72 98 Room Air Room Air 04/10 1803 98.2 88 20 142/86 96 Room Air Intake & Output 04/11 1600 04/11 0800 04/11 0000 04/10 1600 04/10 0800 04/10 0000 Intake Total 1765 400 Output Total Balance 1765 400 Intake, IV 1765 200 Intake, Oral 200 Patient 210 lb Weight Physical Exam: General Appearance: well developed/nourished, overweight white female alert, awake, oriented, cervical collar in place Head: normal HEENT: Normal Neck: supple, JVP normal, carotid upstrokes normal bilaterally, no masses or thyromegaly Respiratory: chest non-tender, clear to auscultation and percussion bilaterally Cardiovascular: regular rate/rhythm, normal S1, S2, 1/6 systolic murmur Abdomen: normal bowel sounds, soft, non-tender Extremities: normal inspection, no edema Vascular: Pulses are 2+ and equal bilaterally Neurologic: Grossly normal/nonfocal Labs/Zac Results: Laboratory Tests 04/11 04/10 04/10 04/10 0410 2210 1800 1600 Chemistry Sodium (137 - 145 mmol/L) 138 138 Potassium (3.5 - 5.1 mmol/L) 4.5 4.5 Chloride (98 - 107 mmol/L) 103 105 Carbon Dioxide (22 - 30 mmol/L) 25 26 Anion Gap (5 - 16) 10 7 BUN (7 - 17 mg/dL) 13 14 Creatinine (0.5 - 1.0 mg/dL) 0.7 0.7 Estimated GFR (>60 ml/min) > 60 > 60 BUN/Creatinine Ratio (7 - 25 %) 18.6 20.0 Troponin I (< 0.11 ng/ml) < 0.01 < 0.01 < 0.01 Diagnostic Data EKG Results Sinus rhythm with PVCs and atrial premature beats; nonspecific ST-T changes Assessment/Plan Assessment/Plan Assessment: 1. Postoperative atrial and ventricular ectopy; nonsustained SVT 2. History of hypertension 3. Day 1 post C-spine surgery Commendations: -The patient seems to be doing well today with no symptoms. On the supervisor public message service she continues to have atrial ectopy with brief runs of nonsustained SVT. Her ventricular ectopy has largely resolved. -Serial troponins have been negative -ECG otherwise unchanged. -Please have an echocardiogram performed to rule out any interval changes and to assess for left ventricular function, etc. -Please make sure the patient is back on her carvedilol twice daily. -Keep the patient on supervisor public message service for another 24 hours to monitor her atrial arrhythmias. Further plans tomorrow. Consult Acknowledgment - Thank you for your consult request.
[2018-04-11 14:59] VITALS: BP 120/80
--- NOTE | 2018-04-11 15:53 | PN- Neurosurgical ---
Surgical Brief Attending Note Brief Attending Note: POD#1 events of yesterday noted feels better today resolved arm pain,decreased neck pain tolerating collar no new deficits wound ok doing well from [facility] aspect home when cleared by cardiology
[2018-04-11 22:05] VITALS: BP 130/76
[2018-04-12 07:00] VITALS: BP 130/80
--- NOTE | 2018-04-12 09:02 | PN- Neurosurgical ---
See Addendum Subjective Subjective: Main complaint this am is left arm cramping, discomfort ranges from shoulder to back of forearm. No reported numbness or tingling to left upper extremity. No reported loss of motor strength to left upper extremity. Neck pain tolerable, no difficulty speaking, breathing or swallowing. No complaints of chest pain, shortness of breath or dizziness. No reported noticable palpitations. No nausea or vomitting. No difficulty voiding. Objective Vital Signs and I&Os Vital Signs Date Time Temp Pulse Resp B/P B/P Pulse O2 O2 Flow FiO2 Mean Ox Delivery Rate 04/12 0902 97.7 62 20 130/80 04/12 0700 97.7 62 20 130/80 95 04/11 2205 97.7 69 16 130/76 96 04/11 1459 97.7 72 120/80 97 Room Air 04/11 0952 98.7 68 20 138/72 Intake & Output 04/12 1600 04/12 0800 04/12 0000 04/11 1600 04/11 0800 04/11 0000 Intake Total 879 867 7178 1765 400 Output Total Balance 745 898 7056 1765 400 Intake, IV 600 784 377 6380 200 Intake, Oral 100 100 780 200 Patient 229 lb 210 lb Weight Physical Exam: General: Alert and oriented x3, no acute distress Cardiac: RRR, s1s2 presently, on telemetry Pulm: Nonlabored respiratory effort, cta bialterally Abd: Non -tender non-distended Ext: Moves all extremities, neurovascular status grossly intact. 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 Radial/ulnar pulses palpable. No swelling noted to shoulder, elbow, wrist, hand or fingers. No warmth/redness to LUE. Small bruise noted on elbow, no hematoma. Bilateral lower extremity exam revealed no calf tightnes or tenderness. Surgical site: Neck, dressing dry and intact, no swelling appreciated, neck collar in place with no compression from brace noted circumferentially, skin around collar dry and intact. Assessment/Plan Assessment/Plan This is a 62 year old female, POD 2, s/p ACDF c5-7 with post op bigeminy and pvcs. PMH significant for htn, hld, gerd, and depression. Is on telemetry floor, cardiac workup currently under the guidance of Dr. Aguilar. -Echocaridogram today, further recommendations from Dr. Aguilar to follow -Continue carvedilol bid -Apply analgesic balm to upper extremity, instructions given to avoid incisional area -Continue current pain regimen Will discuss plan of care with Dr. Edwards and Dr. Morris Core Measures Venous Thromboembolism VTE Risk Factors Surgery No Mechanical VTE Prophylaxis d/t N/A MechProphylax Ordered No VTE Pharm Prophylaxis d/t Surgical Contraindication (POSTOP SPINE SURGERY)
--- NOTE | 2018-04-12 10:26 | PN- Cardiology ---
Subjective Subjective: Clinically stable from cardiac perspective. Notes left arm discomfort radiating from the shoulder today. No other cardiac symptoms. Objective Vital Signs and I&Os Vital Signs Date Time Temp Pulse Resp B/P B/P Pulse O2 O2 Flow FiO2 Mean Ox Delivery Rate 04/12 0902 97.7 62 20 130/80 04/12 0700 97.7 62 20 130/80 95 04/11 2205 97.7 69 16 130/76 96 04/11 1459 97.7 72 120/80 97 Room Air Intake & Output 04/12 1600 04/12 0800 04/12 0000 04/11 1600 04/11 0804/11 0000 Intake Total 488 255 7713 1765 400 Output Total Balance 447 865 0678 1765 400 Intake, IV 600 997 755 9005 200 Intake, Oral 100 100 780 200 Patient 229 lb 210 lb Weight Physical Exam: General Appearance: well developed/nourished, overweight white female alert, awake, oriented, cervical collar in place Head: normal HEENT: Normal Neck: supple, JVP normal, carotid upstrokes normal bilaterally, no masses or thyromegaly Respiratory: chest non-tender, clear to auscultation and percussion bilaterally Cardiovascular: regular rate/rhythm, normal S1, S2, 1/6 systolic murmur Abdomen: normal bowel sounds, soft, non-tender Extremities: normal inspection, no edema Vascular: Pulses are 2+ and equal bilaterally Neurologic: Grossly normal/nonfocal Current Medications: Current Medications Sig/Memo Start time Last Medication Dose Route Stop Time Status Admin Atorvastatin Calcium 10 MG DAILY 04/11 900 AC 04/12 PO 09 Carvedilol 6.25 MG BID 04/10 2100 AC 04/12 PO 09 Celecoxib 200 MG BID 04/10 2100 AC 04/12 PO 0903 Dextrose/Sodium 1,000 ML .[id number] 04/10 1930 AC 04/11 Chloride IV 2345 Diazepam 5 MG TIDPRN 04/10 1430 AC 04/11 PO 2351 Docusate Sodium 100 MG BID 04/10 2100 AC 04/12 PO 0903 Duloxetine HCl 60 MG DAILY 04/11 09 AC 04/12 PO 0902 Famotidine 20 MG BID 04/10 2100 AC 04/12 PO 0902 Gabapentin 900 MG AT BEDTIME 04/110 AC 04/11 PO 211 Gabapentin 900 MG AT BEDTIME 04/11 2100 DC 04/10 PO 2336 Ketorolac 15 MG Q8P PRN 04/10 1445 AC Tromethamine IM Methyl Salicylate 1 SAMMIE Q6P PRN 04/12 0900 AC TOP Morphine Sulfate 2 MG Q2P PRN 04/10 1930 AC 04/11 IV 1616 Ondansetron HCl 4 MG Q6P PRN 04/10 1930 AC IV Oxycodone/ 1 TAB Q4P PRN 04/10 1930 AC 04/11 Acetaminophen PO 1946 Oxycodone/ 2 TAB Q4P PRN 04/10 193 AC 04/12 Acetaminophen PO 0826 Patient Medication 1 ED ONE ONE 04/11 1815 DC Teaching ED 04/11 181 Polyethylene Glycol 17 GM DAILY 04/11 0900 AC 04/12 PO 0902 Results Last 48 Hrs of Labs/Mics: Laboratory Tests 04/11/18 1425: Anion Gap 6, Estimated GFR > 60, BUN/Creatinine Ratio 18.8 04/11/18 0410: Troponin I < 0.01 04/10/18 2210: Troponin I < 0.01 04/10/18 1800: Anion Gap 10, Estimated GFR > 60, BUN/Creatinine Ratio 18.6 04/10/18 1600: Anion Gap 7, Estimated GFR > 60, BUN/Creatinine Ratio 20.0, Troponin I < 0.01 Assessment/Plan Assessment/Plan Assessment: 1. Postoperative atrial and ventricular ectopy; nonsustained SVT 2. History of hypertension 3. Day 1 post C-spine surgery 4. Left arm discomfort-likely musculoskeletal or surgery related. Commendations: -The patient seems to be doing well today with no significant cardiac symptoms. 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 -Serial troponins have been negative; in view of left arm discomfort please check 1 more troponin level -ECG pending from this morning -Echocardiogram pending -Continue carvedilol at current dose -If the patient's echocardiogram, follow-up EKG, and follow-up troponin are negative, the patient can come off telemetry monitoring. Continue telemetry? Yes
--- NOTE | 2018-04-12 10:30 | PN- Gen Med ---
Assessment/Plan Medical Assessment: Ms Marrero is a 62-year-old woman status post a work injury right had severe radiculopathy consecutive to upper disks at C3-4, C4-5 who improved but continued to have mechanical back pain as well as some left arm discomfort, who underwent anterior cervical microscopic discectomy C5, C6, C7 and preparation of space for fusion C5, C6 and C7 for cervical radiculopathy and herniated cervical disks in the same location on 04/10/2018 by Grace URIAS,Mac Dill and Alfa Morris M.D. He has a medical history of hyperlipidemia, hypertension and previous RBBB ( dx' ed 10 yrs ago). After the procedure, he was found to have multiple PVCs and ventricular bigeminy, and was monitored on telemetry. Etiology in his case of having ventricular bigeminy could be due to previous scarring, ACS, electrolyte abnormalities, operative anesthesia. Given PVCs, APBs the patient was monitored on telemetry with a small run of nsvt on night of 04/11. Unclear if she has any left ventricular dysfunction or has any mitral valvular issues for which she would need an echocardiogram. Pertinent lab findings: Potassium 4.5, bicarbonate 26, BUN 13, creatinine 0.7. Cardiac enzymes-troponin I-0.01, 0.01, 0.01. Echo pedning Problem list: #1 multiple PVCs, APBs with ventricular bigeminy, one run of nsvt #2 cervical spondylosis, postoperative day 1 ACDF of C6-C7 #3 history of hypertension, hyperlipidemia Plan: -Recommend checking potassium and magnesium, and repeat to keep potassium ~4, magnesium ~2. -Given multiple APBs, and PVCs CAD needs to be ruled out. -Monitor for any NSVTs. -Echo pending -Monitor vitals, and restart anti-hypertensives if BP is stable and there is no e/o of infection -DVT Prophylaxis at all times. -Continue carvedilol, and plan to increase the dose if needed. -Cardiology recomeendations noted -plan to check another ekg and troponin due to left arm pain -if negative , plan to d/c tele Problem List: 1. S/P cervical spinal fusion 2. S/P cervical discectomy 3. 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 Ventricular bigeminy DVT/Prophylaxis: mechanical, pharmacological Subjective Review of Systems Constitutional: Reports: see HPI. Objective Last 24 Hrs of Vital Signs/I&O Vital Signs Date Time Temp Pulse Resp B/P B/P Pulse O2 O2 Flow FiO2 Mean Ox Delivery Rate 04/12 902 97.7 62 20 130/80 04/12 07 97.7 62 20 130/80 95 04/11 2205 97.7 69 16 130/76 96 04/11 1459 97.7 72 120/80 97 Room Air Intake & Output 04/12 1600 04/12 0800 04/12 0000 Intake Total 700 1555 Output Total Balance 700 1555 Intake, IV 600 675 Intake, Oral 100 880 Patient 104.071 kg Weight Physical Exam General Appearance: Alert, Oriented X3, Cooperative, No Acute Distress Lymphatic: no lad Cardiovascular: Normal S1, Normal S2, No Murmurs Lungs: Clear to Auscultation, Normal Air Movement Extremities: No Clubbing, No Cyanosis, No Edema, Normal Pulses Vascular: Normal Pulses Current Medications: Current Medications Sig/Memo Start time Last Medication Dose Route Stop Time Status Admin Atorvastatin Calcium 10 MG DAILY 04/11 900 AC 04/12 PO 09 Carvedilol 6.25 MG BID 04/10 2100 AC 04/12 PO 0902 Celecoxib 200 MG BID 04/10 2100 AC 04/12 PO 0903 Dextrose/Sodium 1,000 ML .[id number] 04/10 1930 AC 04/11 Chloride IV 2345 Diazepam 5 MG TIDPRN 04/10 1430 AC 04/11 PO 2351 Docusate Sodium 100 MG BID 04/10 2100 AC 04/12 PO 0903 Duloxetine HCl 60 MG DAILY 04/11 09 AC 04/12 PO 09 Famotidine 20 MG BID 04/10 2100 AC 04/12 PO 0902 Gabapentin 900 MG AT BEDTIME 04/11 2130 AC 04/11 PO 2113 Gabapentin 900 MG AT BEDTIME 04/11 2100 DC 04/10 PO 2336 Ketorolac 15 MG Q8P PRN 04/10 1445 AC Tromethamine IM Methyl Salicylate 1 SAMMIE Q6P PRN 04/12 09 AC TOP Morphine Sulfate 2 MG Q2P PRN 04/10 193 AC 04/11 IV 1616 Ondansetron HCl 4 MG Q6P PRN 04/10 1930 AC IV Oxycodone/ 1 TAB Q4P PRN 04/10 1930 AC 04/11 Acetaminophen PO 1946 Oxycodone/ 2 TAB Q4P PRN 04/10 1930 04/12 Acetaminophen PO 0826 Patient Medication 1 ED ONE ONE 04/11 1815 [facility] ED 04/11 181 Polyethylene Glycol 17 GM DAILY 04/11 0900 04/12 PO 0902 Last 24 Hrs of Labs/Mics: Laboratory Tests 04/11/18 1425: Anion Gap 6, Estimated GFR > 60, BUN/Creatinine Ratio 18.8
[2018-04-12 14:46] VITALS: BP 148/90
[2018-04-12] MEDS ORDERED: VALIUM5 M2 PO (16:12)
--- NOTE | 2018-04-14 15:32 | ECHOCARDIOGRAM REPORT ---
JOANA YADAV Age: 62 : 1955 Gender: F Exam Date: 04/12/2018 10:52 Exam Location: [address] Ht (in): 63 Wt (lb): 209 BSA: 2.10 BP: 130 / 80 Ordering Physician: Yoel Mchugh MD Referring Physician: Yoel Mchugh MD Technologist: Leopoldo Rod[facility]guez [facility] Room Number: [id number] Indications: Cardiac arrhythmia, unspecified Rhythm: Sinus Technical Quality: difficult FINDINGS Left Ventricle Normal left ventricular size, wall thickness and systolic function with no obvious regional wall motion abnormalities. Normal left ventricular diastolic filling pattern for age. The ejection fraction is visually estimated at 60 %. Right Ventricle The right ventricle is normal in size and function. Right Atrium The right atrium is normal in size. Left Atrium The left atrium is normal in size. The interatrial septum is not well visualized. Mitral Valve The mitral valve is normal in structure and function. There is no mitral regurgitation. Aortic Valve Structurally normal aortic valve without significant sclerosis or stenosis. There is no aortic regurgitation. Tricuspid Valve The tricuspid valve is normal in structure and function. There is mild tricuspid regurgitation. Pulmonary artery systolic pressure is estimated at 35 mmHg. Pulmonic Valve Structurally normal pulmonic valve. There is no pulmonic regurgitation. Pericardium Normal pericardium without effusion. No pleural effusion. Great Vessels Normal aortic root dimension. CONCLUSIONS Normal left ventricular size, wall thickness and systolic function with no obvious regional wall motion abnormalities. Normal left ventricular diastolic filling pattern for age. The ejection fraction is visually estimated at 60 %. The right ventricle is normal in size and function. The left atrium is normal in size. Structurally normal aortic valve without significant sclerosis or stenosis. There is no aortic regurgitation. There is mild tricuspid regurgitation. Pulmonary artery systolic pressure is estimated at 35 mmHg. Normal aortic root dimension. Clifton Whyte M.D. (Electronically Signed) Final Date: 14 April 2018 15:29 MEASUREMENTS (Male / Female) Normal Values 2D ECHO LV Diastolic Diameter PLAX 5.0 cm 4.2 - 5.9 / 3.9 - 5.3 cm LV Systolic Diameter PLAX 2.9 cm 2.1 - 4.0 cm LV Fractional Shortening PLAX 41.7 % 25 - 46 % LV Ejection Fraction 2D Teich 72.5 % IVS Diastolic Thickness 1.1 cm LVPW Diastolic Thickness 0.9 cm LV Relative Wall Thickness 0.4 LVOT Diameter 1.8 cm Aortic Root Diameter 2.9 cm LA Systolic Diameter LX 3.0 cm 3.0 - 4.0 / 2.7 - 3.8 cm Ascending Aorta Diameter 3.0 cm DOPPLER AV Peak Velocity 119.0 cm/s AV Peak Gradient 5.7 mmHg AV Mean Velocity 84.3 cm/s AV Mean Gradient 3.0 mmHg AV Velocity Time Integral 26.1 cm LVOT Peak Velocity 101.0 cm/s LVOT Peak Gradient 4.1 mmHg LVOT Mean Velocity 60.6 cm/s LVOT Mean Gradient 2.0 mmHg LVOT Velocity Time Integral 21.6 cm LVOT Stroke Volume 55.0 cm AV Area Cont Eq vti 2.1 cm AV Area Cont Eq pk 2.2 cm MV Peak Velocity 86.9 cm/s MV Peak Gradient 3.0 mmHg MV Mean Velocity 63.3 cm/s MV Mean Gradient 2.0 mmHg Mitral E Point Velocity 72.6 cm/s Mitral A Point Velocity 68.1 cm/s Mitral E to A Ratio 1.1 MV PHT Velocity 90.9 cm/s MV Deceleration Elliott 282.0 cm/s MV Pressure Half Time 96.7 ms MV Area PHT 2.3 cm MV Deceleration Time 246.0 ms TR Peak Velocity 292.0 cm/s TR Peak Gradient 34.1 mmHg Right Atrial Pressure 10.0 mmHg Pulmonary Artery Systolic Pressure 44.1 mmHg Right Ventricular Systolic Pressure 44.1 mmHg PV Peak Velocity 89.6 cm/s PV Peak Gradient 3.2 mmHg
== END 2018-04-12 17:15 | disposition home health service (06) | DRG 472 ==
LOC: SDA 03:20 → EDBEDREQ 13:06 → ENRESERV 13:09 → CANRESERV 13:09 → EDBEDREQ 14:46 → ENRESERV 15:47 → 1NO 17:35
PROC: 0RB30ZZ Excision of Cervical Vertebral Disc, Open Approach (ICD-10-PCS; principal; 2018-04-10)
PROC: 0RG2070 Fusion of 2 or more Cervical Vertebral Joints with Autologous Tissue Substitute, Anterior Approach, Anterior Column, Open Approach (ICD-10-PCS; 2018-04-10)
PROC: 4A11X4G Monitoring of Peripheral Nervous Electrical Activity, Intraoperative, External Approach (ICD-10-PCS; 2018-04-10)
PROC: 0RP104Z Removal of Internal Fixation Device from Cervical Vertebral Joint, Open Approach (ICD-10-PCS; 2018-04-10)
DX: M50.123 Cervical disc disorder at C6-C7 level with radiculopathy (principal); I47.0 Re-entry ventricular arrhythmia; I10 Essential (primary) hypertension; Z96.641 Presence of right artificial hip joint; Z87.891 Personal history of nicotine dependence; R94.31 Abnormal electrocardiogram [ECG] [EKG]; E78.5 Hyperlipidemia, unspecified; R00.8 Other abnormalities of heart beat; K21.9 Gastro-esophageal reflux disease without esophagitis; I45.10 Unspecified right bundle-branch block; I49.3 Ventricular premature depolarization
CPT/HCPCS: 1NSP; 36592; 76000; 82436; 87086; 88304; 93005; 93010; 93306; 97116-GO; 97161-GP; 97530-GO; C1713; J0131; J0690; J1885; J2405; J3490; J7042

== ENCOUNTER 2018-04-23 18:54 | Emergency (ER) | payer OTHER ==
[~2018-04-23 18:54] MED LIST changes: +DOCUSATE SODIU100 M3 PO; +MIRALAX119 GM PO; +VALIUM5 M2 PO
--- NOTE | 2018-04-23 21:01 | ULTRASOUND REPORT ---
EXAMINATION: US TRIPLEX LOWER EXTREMITY, RIGHT CLINICAL INFORMATION: Edema. Right leg swelling COMPARISON: None TECHNIQUE: Color-flow triplex imaging with spectral analysis and compression Doppler were performed on the lower extremity. FINDINGS: Respiratory variation, normal compression and augmented flow are noted throughout the lower extremity. The visualized common femoral vein, superficial femoral vein, profunda femoral vein, popliteal vein and midcalf peroneal and posterior tibial venous segments show no evidence of deep venous thrombosis. There is no Pulliam's cyst. IMPRESSION: No evidence of deep venous thrombosis involving the lower extremity.
--- NOTE | 2018-04-23 21:21 | ED GENERAL ADULT ---
History of Present Illness General Chief Complaint: General Adult Stated Complaint: DIFFICULTY WALKING, S/P CERVICAL FUSION 2WKS AGO Source: patient Exam Limitations: no limitations Vital Signs & Intake/Output Vital Signs & Intake/Output Vital Signs Date Time Temp Pulse Resp B/P B/P Pulse O2 O2 Flow FiO2 Mean Ox Delivery Rate 04/24 0341 97.2 72 18 140/89 100 Room Air 04/23 2249 87 18 138/84 99 Room Air 04/23 1858 97.0 90 16 161/97 96 Room Air Allergies Coded Allergies: No Known Allergies (03/27/18) Reconcile Medications Aspirin (Children's Aspirin) 81 MG TAB.CHEW 1 TAB PO DAILY HEART HEALTH ( Reported) Atorvastatin Calcium (Lipitor) 10 MG TABLET 1 TAB PO DAILY CHOLESTEROL ( Reported) Carvedilol 6.25 MG TABLET 1 TAB PO BID HEART (Reported) Celecoxib (Celebrex) 200 MG CAPSULE 1 CAP PO BID PAIN (Reported) Diazepam 5 MG TABLET 1 TAB PO TIDPRN PAIN (Reported) Diazepam (Valium) 5 MG TABLET 1 TAB PO Q8P PRN SPASM Duloxetine HCl (Cymbalta) 60 MG CAPSULE.DR 1 CAP PO DAILY DEPRESSION ( Reported) Gabapentin (Neurontin) 300 MG CAPSULE 1 CAP PO QHS PAIN (Reported) Oxycodone HCl/Acetaminophen (Percocet 5-325 MG Tablet) 5 MG-325 MG TABLET 1-2 TAB PO Q4-6 PRN PRN pain Ranitidine (Ranitidine HCl) 150 MG TABLET 1 TAB PO BID REFLUX (Reported) Tramadol HCl (Tramadol HCl ER) 100 MG TAB.ER.24H 1 TAB PO DAILY PRN PAIN ( Reported) Triage Note: PT TO ED S/P CERVICAL FUSION ON 04/10/18. TODAY REPORTS RIGHT CALF TENDERNESS BEGINNING TODAY. AREA TENDER TO TOUCH. NO REDNESS/WARMTH NOTED. NO SWELLING APPRECIATED. +PEDAL PULSES BILATERALLY. Triage Nurses Notes Reviewed? yes Onset: Abrupt Duration: hour(s): Timing: single episode today HPI: 62 year old female presents to the emergency department for right lower extremity pain in the calf and behind the knee and with motion. She had cervical surgery 2 weeks ago. The pain in the leg started today. She also states that she did have an episode of chest pain which has since resolved (Willian Man DO) Past History Travel History Traveled to [place] past 21 day No Medical History Any Pertinent Medical History? 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 No (Willian Man DO) Review of Systems Review of Systems Constitutional: Reports: see HPI. Denies: fever. EENTM: Reports: no symptoms. Denies: double vision, visual changes, eye pain. Respiratory: Reports: no symptoms. Denies: cough, short of breath. Cardiovascular: Denies: chest pain. GI: Reports: no symptoms. Genitourinary: Reports: no symptoms. Musculoskeletal: Reports: no symptoms. Skin: Reports: no symptoms. Neurological/Psychological: Reports: no symptoms. Hematologic/Endocrine: Reports: no symptoms. Immunologic/Allergic: Reports: no symptoms. All Other Systems: Reviewed and Negative (Willian Man DO) Physical Exam Physical Exam General Appearance: well developed/nourished, alert, awake, anxious, mild distress Head: atraumatic, normal appearance, SHE HAS A CLEAN WOUND AT THE BASE OF HER RIGHT NECK ANTERIORLY. Eyes: Bilateral: normal appearance, PERRL, EOMI. Ears, Nose, Throat: normal ENT inspection Neck: suture site on right side of neck Respiratory: normal breath sounds, no respiratory distress Cardiovascular: regular rate/rhythm Peripheral Pulses: 4+ radial (R), 4+ radial (L) Gastrointestinal: soft, non-tender Back: normal range of motion Extremities: calf tenderness (right), tenderness Neurologic/Psych: no motor/sensory deficits, awake, alert, oriented x 3 Skin: intact, normal color, warm/dry Core Measures ACS in differential dx? No CVA/TIA Diagnosis: No Sepsis Present: No Sepsis Focused Exam Completed? No (Willian Man DO) Progress Differential Diagnoses I considered the following diagnoses in my evaluation of the patient: [DVT, peripheral vascular disease, leg cramps, electrolyte derangement, sciatica, acute coronary syndrome, pulmonary embolism] Plan of Care: Orders Procedure Date/time Status TROPONIN LEVEL 04/24 115 Complete EKG 04/24 115 Active Saline Lock 04/23 2146 Active TROPONIN LEVEL 04/23 2146 Complete D-DIMER 04/23 2146 Complete COMPREHENSIVE METABOLIC PANEL 04/23 2146 Complete CBC WITHOUT DIFFERENTIAL 04/23 2146 Complete EKG 04/23 1909 Active Laboratory Tests 04/24/18 0136: Troponin I < 0.01 04/23/187: Anion Gap 6, Estimated GFR > 60, BUN/Creatinine Ratio 20.0, Glucose 106 H, Calcium 10.1, Total Bilirubin 0.2, AST 29, ALT 40, Alkaline Phosphatase 92, Troponin I < 0.01, Total Protein 6.9, Albumin 4.0, Globulin 2.9, Albumin/ Globulin Ratio 1.4, D-Dimer High Sensitivty 585 H, CBC w Diff NO MAN DIFF REQ, RBC 4.51, MCV 87.3, MCH 30.3, MCHC 34.7, RDW 11.9, MPV 8.2, Gran % 55.4, Lymphocytes % 34.1, Monocytes % 6.6, Eosinophils % 3.2, Basophils % 0.7, Absolute Granulocytes 3.8, Absolute Lymphocytes 2.3, Absolute Monocytes 0.5, Absolute Eosinophils 0.2, Absolute Basophils 0.1 Initial ED EKG: normal sinus rhythm, nonspecific ST T wave chg Prior EKG: unchanged (Willian Man DO) Repeat EKG: unchanged (Judie URIAS,Bandar Graham) Departure Departure Disposition: STILL A PATIENT Condition: Stable Clinical Impression Primary Impression: Calf pain Secondary Impressions: Chest pain Referrals: Sade Reyes DO (PCP/Family) Departure Forms: Customer Survey General Discharge Information Comments 04/23/18 10:38 PM The chest pain is absent at this time. EKG is normal. D-dimer and labs are pending. Ultrasound was negative for DVT. The patient will be signed out to Dr. Dimas at 11 PM (Willian Man DO) Departure Comments 04/24/18, 3:20AM... pt with benign ct angio, u/s negative for dvt. trop neg x 2, ekg unchanged x 2... pt feels well in ED and is safe for discharge. close follow up advised. (Judie URIAS,Bandar Graham) Critical Care Note Critical Care Note Critical Care Time: non-applicable (Willian Man DO)
[2018-04-23 22:23] LABS: ABSOLUTE BASOPHIL COUNT 0.1 /CUMM (0.0-0.2); ABSOLUTE EOSINOPHIL COUNT 0.2 /CUMM (0.0-0.7); ABSOLUTE GRANULOCYTE CT 3.8 /CUMM (1.4-6.5); ABSOLUTE LYMPH COUNT 2.3 /CUMM (1.2-3.4); ABSOLUTE MONOCYTE COUNT 0.5 /CUMM (0.10-0.60); BASOPHIL % 0.7 % (0.0-2.0); EOSINOPHIL % 3.2 % (0-5); GRANULOCYTE % 55.4 % (42.2-75.2); HEMATOCRIT 39.4 % (37-47); MEAN CORPUSCULAR HGB 30.3 PG (27.0-31.0); MEAN CORPUSCULAR HGB CONC 34.7 G/DL (33.0-37.0); MEAN CORPUSCULAR VOLUME 87.3 FL (81.0-99.0); MEAN PLATELET VOLUME 8.2 FL (7.4-10.4); PLATELET COUNT 275 /CUMM (130-400); RBC DISTRIBUTION WIDTH 11.9 % (11.5-14.5); RED BLOOD CELL CT 4.51 /CUMM (4.20-5.40); WHITE BLOOD CELL COUNT 6.9 /CUMM (4.8-10.8)
--- NOTE | 2018-04-24 01:11 | CT SCAN REPORT ---
EXAMINATION: CT PULMONARY EMBOLISM STUDY CLINICAL INFORMATION: Elevated d-dimer. Chest pain. COMPARISON: None. TECHNIQUE: Contiguous helical images of the chest were obtained following the administration of IV contrast. Multiplanar reconstructions were performed. MIPS were obtained and reviewed. DLP: 547 mGy-cm. CONTRAST: 70 cc of Optiray 320 were administered without incident. FINDINGS: The heart is of normal size. There is no pericardial effusion. The great vessels are unremarkable. Specifically, there is no pulmonary arterial filling defect. There is no CT evidence for pulmonary embolism. There are no chest wall masses. Review of lung windows demonstrates that there are neither pleural effusions nor pneumothoraces. There are no consolidations. There is mild dependent bibasilar atelectasis. There is linear atelectasis or scarring within the lingula. Within the right upper lobe on image 64/483, there is a 4 mm nodule. Also within the right upper lobe on image 107/483, there is a 4 mm nodule. Within the lateral segments of the right middle lobe on image 218, there is a 3 mm nodule. There is a 4 mm semisolid nodular density within the left apex on image 29. Within the left lower lobe on image 287, there is a 4 mm nodule. Adjacent to the pleura within the left lower lobe on image 287, there is a 3 mm nodule. There is a small hiatal hernia. Limited evaluation of the upper abdomen demonstrates that the liver is of normal size and attenuation. Within the dome of the right lobe of the liver, there is a 1.5 cm fluid attenuation focus on image 310/483. Also within the dome of the right lobe of the liver on image 308, there is a 1.3 cm fluid attenuation focus.. Normal adrenal glands are identified. IMPRESSION: No CT evidence for pulmonary embolism. Lingular and dependent bibasilar atelectasis. Small hiatal hernia. Benign-appearing hepatic cysts. Several subcentimeter pulmonary nodules. The largest measures 4 mm. Various management parameters for solitary pulmonary nodules are in the literature. According to the Fleischner Society, recommendations for pulmonary nodules are as follows: Nodule size < or = to 4 mm in LOW RISK PATIENTS: No follow up needed. Nodule size < or = to 4 mm in HIGH RISK PATIENTS: Follow up CT at 12 months; if unchanged, no further follow up. Nodule size > 4-6 mm in LOW RISK PATIENTS: Follow up CT at 12 months; if unchanged, no further follow up. Nodule size > 4-6 mm in HIGH RISK PATIENTS: Initial follow up CT at 6-12 months, then at 18-24 months if no change. Nodule size > 6-8 mm in LOW RISK PATIENTS: Initial follow up CT at 6-12 months, then at 18-24 months if no change. Nodule size > 6-8 mm in HIGH RISK PATIENTS: Initial follow up CT at 3-6 months, then 9-12 months and 24 months if no change. Nodule size > 8 mm in LOW RISK PATIENTS: Follow up CT at around 3, 9, and 24 months, dynamic contrast-enhanced CT, PET, and/or biopsy. Nodule size > 8 mm in HIGH RISK PATIENTS: Same as for low-risk patients.
[2018-04-24 03:41] VITALS: BP 140/89
== END 2018-04-24 03:42 ==
LOC: ERH 18:54
PROVIDERS: Emergency Medicine
DX: M79.661 Pain in right lower leg (principal); R07.9 Chest pain, unspecified; I10 Essential (primary) hypertension; M72.2 Plantar fascial fibromatosis
CPT/HCPCS: 93005; 93010; J3360